=== PATIENT | female | born 1940 | race Caucasian/White ===

== ENCOUNTER 2020-03-10 12:12 | Emergency (ER) | payer MEDICARE, SELFPAY ==
[2020-03-10 12:20] VITALS: BP 121/95; PULSE 84; RESP 18; TEMP 36.6; O2SAT 86
--- NOTE | 2020-03-10 13:13 | ED.EYEPROB ---
HPI - Eye Problem General Chief complaint: Eye Problems <MITESH Garza Last Filed: 03/10/20 13:40> Stated complaint: left eye swollen <MITESH Garza Last Filed: 03/10/20 13:40> Time Seen by Provider: 03/10/20 12:22 <MITESH Garza Last Filed: 03/10/20 13:40> Source: patient <MITESH Garza Last Filed: 03/10/20 13:40> Mode of arrival: ambulatory <MITESH Garza Last Filed: 03/10/20 13:40> Limitations: no limitations <MITESH Garza Last Filed: 03/10/20 13:40> History of Present Illness HPI Narrative: Patient is an 80-year-old female who presents with left thigh swelling and facial swelling patient notes that she was working in the yard yesterday and believes she may have been stung in the face and has since had swelling she has been taking Benadryl and using cool compresses with minimal improvement. Patient denies any fever chills URI symptoms or visual changes. Patient on arrival to emergency department in the room in no distress <MITESH Garza Last Filed: 03/10/20 13:40> Related Data Home medications: Home Medications Medication Instructions Recorded Confirmed bumetanide 1 mg tablet 2 mg PO BID tablet 11/03/19 03/08/20 diltiazem HCl 120 mg tablet 120 mg PO TID 11/03/19 03/08/20 gabapentin 600 mg tablet 600 mg PO TID 11/03/19 03/08/20 mirtazapine 15 mg tablet 15 mg PO .QHS tablet 11/03/19 03/08/20 potassium chloride 10 mEq 10 meq PO BID 11/03/19 03/08/20 tablet,extended release pravastatin 20 mg tablet 20 mg PO DAILY 11/03/19 03/08/20 <MITESH Garza Last Filed: 03/10/20 13:40> Allergies/adverse reactions: Allergies Allergy/AdvReac Type Severity Reaction Status Date / Time codeine Allergy Nausea and Verified 03/10/20 12:40 Vomiting <MITESH Garza Last Filed: 03/10/20 13:40> Review of Systems Review of Systems: All systems reviewed & are unremarkable except as noted in HPI and below <Canelo Aparicio PA-C - Last Filed: 03/10/20 13:40> [facility] Past Medical History Medical History: Medical History Aortic stenosis CAD (coronary artery disease) CHF (congestive heart failure) Chronic hypoxemic respiratory failure Chronic insomnia COPD (chronic obstructive pulmonary disease) Depression History of breast cancer HLD (hyperlipidemia) Hypertensive heart disease with heart failure Idiopathic peripheral neuropathy [place] (myocardial infarction) Shortness of Breath Supplemental oxygen dependent <Canelo Aparicio PA-C - Last Filed: 03/10/20 13:40> Surgical History Surgical History: Surgical History History of bilateral mastectomy Status post right knee replacement Stented coronary artery <Canelo Aparicio PA-C - Last Filed: 03/10/20 13:40> Family History Family History: Family History (Updated 03/08/20 @ 11:10 by Blanca Parish MD) Sibling Family history of lung cancer, Onset Age: 75 Family history of malignant neoplasm of breast in first degree relative, Onset Age: 72 Father Cerebrovascular accident Hypertension Mother Heart disease Daughter , brain cancer 2013 age 53 No problems noted. <Canelo Aparicio PA-C - Last Filed: 03/10/20 13:40> Social History Social History: Social History Smoking packs per day: 0.5 Smoking cigarettes per day: 10.0 Years smoked: 30 Smoking pack-years: 15.00 Smoking status: Former smoker Tobacco type: cigarettes Second hand tobacco smoke exposure: No Smoking end date: 10/11/79 Alcohol intake: never Substance use: never Substance use type: does not use Gender identity (if verbalized by the patient): Female <Canelo Aparicio PA-C - Last Filed: 03/10/20 13:40> Exam Na
[2020-03-10] MEDS: methylPREDNISolone SOD SUCC 125 MG VIAL IV PUSH (13:17)
[2020-03-10] MEDS: FAMOTIDINE 20 MG/2 ML VIAL IV PUSH (13:17)
[2020-03-10 13:35] VITALS: BP 138/77; PULSE 66; RESP 18; O2SAT 100
== END 2020-03-10 13:52 | disposition home or self-care (01) ==
PROVIDERS: Emergency Provider Emergency Medicine; PCP Family Medicine
DX: T78.40XA Allergy, unspecified, initial encounter (principal); I25.10 Atherosclerotic heart disease of native coronary artery without angina pectoris; I50.9 Heart failure, unspecified; J96.11 Chronic respiratory failure with hypoxia; F51.04 Psychophysiologic insomnia; J44.9 Chronic obstructive pulmonary disease, unspecified; Z85.3 Personal history of malignant neoplasm of breast; E78.5 Hyperlipidemia, unspecified; I11.0 Hypertensive heart disease with heart failure; G60.9 Hereditary and idiopathic neuropathy, unspecified; Z99.81 Dependence on supplemental oxygen; I25.2 Old myocardial infarction; Z96.651 Presence of right artificial knee joint; Z90.13 Acquired absence of bilateral breasts and nipples; Z95.5 Presence of coronary angioplasty implant and graft; Z87.891 Personal history of nicotine dependence
CPT/HCPCS: 96374; 96375; 99284; J2930

== ENCOUNTER 2020-04-01 11:09 | Outpatient (CLI) | payer MEDICARE, SELFPAY ==
--- NOTE | ~2020-04-01 | XR_ITS ---
EXAMINATION: XR chest 2V DATE: 04/01/2020 12:07 INDICATION: Chronic obstructive pulmonary disease TECHNIQUE: PA and lateral views of the chest were obtained. COMPARISON: Chest radiograph dated 09/20/2019 FINDINGS: Postoperative change of prior left mastectomy and likely axillary lymph node dissection with multiple surgical clips at the left axilla. Right breast implant. Approximately 3 cm nodular opacity projecti ng over the lateral left midlung zone, unclear whether within the lung or scarring at the chest wall. Increased lucency in the right upper lung zone consistent with emphysema better appreciated on prior PET/CT dated 08/16/2012. Mild bibasilar atelectasis. No pulmonary edema, pleural effusion or pneumoth orax. Heart size is normal. Atherosclerotic aorta. IMPRESSION: 1. 3 cm nodular opacity projecting over the lateral left midlung zone. Differential would include int rapulmonary malignancy, pneumonia or atelectasis or artifact of chest wall scarring related to a prio r left mastectomy. Consider chest CT for further evaluation. 2. Emphysema. Reviewed, dictated and finalized at location A. IMPRESSION: 1. 3 cm nodular opacity projecting over the lateral left midlung zone. Differen tial would include intrapulmonary malignancy, pneumonia or atelectasis or artif act of chest wall scarring related to a prior left mastectomy. Consider chest C T for further evaluation. 2. Emphysema.
[2020-04-01 11:30] VITALS: PULSE 89; O2SAT 87
[2020-04-01 11:32] VITALS: O2SAT 87
[2020-04-01 11:34] VITALS: O2SAT 93
[2020-04-01 11:45] VITALS: PULSE 99; O2SAT 91
[2020-04-01 11:50] VITALS: PULSE 83; O2SAT 93
--- NOTE | 2020-04-01 12:06 | HOMEO2EVAL ---
Home Oxygen Evaluation RC: Home Oxygen (O2) Evaluation Start: 04/01/20 12:01 Freq: Status: Active Protocol: RPE Activity Type Activity Date Activity User E-Sign Co-Sign Detail Recorded Client Recorded Date Recorded By Document 04/01/20 11:30 ABHI [email or web address] 04/01/20 12:06 ABHI Document 04/01/20 11:32 ABHI [email or web address] 04/01/20 12:06 ABHI Document 04/01/20 11:34 ABHI [email or web address] 04/01/20 12:06 ABHI Document 04/01/20 11:45 ABHI [email or web address] 04/01/20 12:06 ABHI Document 04/01/20 11:50 ABHI [email or web address] 04/01/20 12:06 ABHI 04/01/20 04/01/20 04/01/20 11:30 11:32 11:34 Home O2 Evaluation Test Phase Resting Resting Resting Oxygen Delivery Room Air Nasal Cannula Nasal Cannula Oxygen Flow Rate (L/min) 1 2 Pulse Oximetry (90-100 %) 87 L 87 L 93 Pulse Rate (60-100 beats/min) 89 Ambulation Distance (feet) Home Oxygen Evaluation Comments Treatment Charges O2 Evaluation 04/01/20 04/01/20 11:45 11:50 Home O2 Evaluation Test Phase Exercise Resting Oxygen Delivery Nasal Cannula Nasal Cannula Oxygen Flow Rate (L/min) 2 2 Pulse Oximetry (90-100 %) 91 93 Pulse Rate (60-100 beats/min) 99 83 Ambulation Distance (feet) 400 Home Oxygen Evaluation Comments HOME O2 AT 2 AT REST AND 2 WITH ACTIVITY. Treatment Charges
--- NOTE | 2020-04-01 12:08 | RPD ---
INDIVIDUALIZED PLAN OF CARE FOR Kim Henderson Brief Synthesis of Pre-Admission Screen, Post-Admission Evaluation and Therapy Evaluations: The patient presents to rehab with . Comorbidities include . 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 Treatments may include: Therapeutic Exercise, Gait Training, Neuromuscular Re-education, Transfer Training, Community Reintegration, Bed Mobility, Patient/Family Education, Wheelchair Mobility Group Therapy/Concurrent Therapy Rationales: -Improve attention span during functional activities in a distracted environment. -Enhance problem solving and/or adequate judgment skills during functional activities in a distracted environment. -Promote increased safety awareness in a distracted environment to reduce fall risk with functional tasks, transfers, and ambulation to allow a more safe, self-sufficient return to the home environment. -Improve dynamic balance skills to promote safety and independence with functional activities in a distracted environment for maximum gain. Occupational Therapy: 5 days per week for 90 minutes. Treatments may include: Therapeutic Exercise, Therapeutic Activity, Cognitive Training, Self-Care Transfer Training, Community Reintegration, Home Management, Patient/Family Education, Wheelchair Mobility Training, Energy Conservation Training Group Therapy/Concurrent Therapy Rationales: -Allow therapist to observe and teach generalization and carry-over of skills learned in individual therapy. -Enhance problem solving and sequencing skills during therapeutic activities in a distracted environment. -Promote increased safety awareness in a realistic setting to reduce fall risk with functional tasks due to visual and verbal distractions. -Increase functional level with ADLs, ADL transfers and use of adaptive equipment through therapeutic activities with others while promoting safety to allow a more safe, self-sufficient return home. Speech Therapy: 5 days per week for 30 minutes. Treatments may include: Dysphasia Therapy, Speech/Language/Communication Therapy, Cognitive Training, Patient/Family Education Group Therapy/Concurrent Therapy - Rationale: -Allow therapist to observe and teach generalization and carry-over of skills learned in individual therapy. -Improve comprehension skills with complex or abstract ideas through discussion in a realistic setting. -Enhance problem solving skills with complex issues during activities in a distracted environment. -Promote increased memory skills and concentration in a distracted environment for a safe transition home. -Improve attention and focus with language/communication skills in a realistic and supportive therapeutic setting. -Allow for practice of expression of basic needs and ideas through functional activities with others. Medical Prognosis: Good Anticipated Length of Stay: 12 days Rehab Goals: Eating Goal: Oral Hygiene Goal: Toileting Hygiene Goal: Shower/Bathe Self Goal: Upper Body Dressing Goal: Lower Body Dressing Goal: Putting On/Taking Off Footwear Goal: Rolling Left and Right Goal: Sit to Lying Goal: Lying to Sitting on Side of Bed Goal: Sit to Stand Goal: Chair/Wfe-ck-Oacru Transfer Goal: Toilet Transfer Goal: Car Transfer Goal: Walk 10' Goal: Walk 50' with Two Turns Goal: Walk 150' Goal: Walk 10' on Uneven Surface Goal: 1 Step (Curb) Goal: 4 Steps Goal: 12 Steps Goal Score: Picking Up Object Goal: Wheel 50' with Two Turns Score: Wheel 150' Goal: Anticipated discharge destination: Home
--- NOTE | 2020-04-01 12:08 | PCRCNOTE ---
HOME O2 EVAL FAXED TO [facility]
== END 2020-04-01 11:10 | disposition home or self-care (01) ==
PROVIDERS: PCP Family Medicine; Visit Provider Internal Medicine Critical Care Medicine
DX: R06.02 Shortness of breath (principal); J43.9 Emphysema, unspecified
CPT/HCPCS: 71046; 94618

== ENCOUNTER 2020-05-06 10:23 | Outpatient (CLI) | payer MEDICARE, SELFPAY ==
--- NOTE | ~2020-05-06 | CT_ITS ---
EXAMINATION: CT chest wo con DATE: 05/06/2020 10:54 INDICATION: Solitary pulmonary nodule, history of breast cancer TECHNIQUE: Computed tomography (CT) of the chest was performed without intravenous contrast. The dose -length product (DLP) was 77.10 mGy-cm. Automated exposure control and iterative reconstruction techn ique were employed. COMPARISON: None FINDINGS: There is severe emphysema. There are changes of left lumpectomy and left axillary lymph nod e dissection. Also seen are changes of right mastectomy with implant reconstruction. No suspicious pu lmonary nodule is identified. The opacity on recent chest radiograph likely relates to residual soft tissue of the left chest wall. Calcified pulmonary nodules and calcified hilar and mediastinal lymph nodes are consistent with old granulomatous disease. There is no pleural effusion or pneumothorax. Th e heart size is normal. Calcified coronary artery atherosclerosis is noted. There is a stable valerie everardo deformity of the T10 vertebral body. IMPRESSION: 1. No suspicious CT correlate for the chest radiographic finding in question.. 2. Severe emphysema. Reviewed, dictated and finalized at location B.
== END 2020-05-06 10:24 | disposition home or self-care (01) ==
LOC: ANHIMG 10:26
PROVIDERS: PCP Family Medicine; Visit Provider Internal Medicine Critical Care Medicine
DX: R91.1 Solitary pulmonary nodule (principal); J43.9 Emphysema, unspecified
CPT/HCPCS: 71250

== ENCOUNTER 2020-09-27 10:49 | Observation (INO) | payer MEDICARE, SELFPAY ==
[2020-09-27] VITALS (11 sets, daily range): BP systolic 137–173; BP diastolic 71–88; PULSE 76–115; RESP 14–20; TEMP 35.6–36.7; O2SAT 87–98
--- NOTE | ~2020-09-27 | CT_ITS ---
EXAMINATION: CT brain wo con DATE: 09/27/2020 12:47 INDICATION: Head injury. TECHNIQUE: Computed tomography (CT) of the head was performed without intravenous contrast. The mA wa s adjusted according to patient size. Iterative reconstruction technique was employed. The dose-lengt h product was 529.67 mGy-cm. COMPARISON: None FINDINGS: There are old infarcts in the left basal ganglia. There is a small old infarct in right fro ntoparietal region. There are scattered areas of low attenuation in the cerebral white matter. There is no intracranial hemorrhage, acute infarction, or abnormal intracranial mass lesion. The ventricles are normal in size. There are likely changes of ocular lens replacement surgeries. There is mild muc osal thickening ethmoid sinuses. The mastoid air cells are normal. IMPRESSION: 1. 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 2. Moderate nonspecific cerebral white matter disease, which likely represents chronic small vessel i schemic disease. Reviewed, dictated and finalized at location A. OLATE MAKER IMPRESSION: 1. 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 2. Moderate nonspecific cerebral white matter disease, which likely represents chronic small vessel ischemic disease.
--- NOTE | ~2020-09-27 | XR_ITS ---
XR chest 1V portable 09/27/2020 11:38 Indication: Hypoxia. Recent fall with rib pain. Procedure: AP portable chest Comparison: 04/01/2020 Findings: Bilateral infiltrates of the mid and lower lung zones. Possible small effusions. Borderline heart size. There is atherosclerosis. No pneumothorax. The lungs are hyperinflated which is consiste nt with, but not diagnostic of chronic obstructive pulmonary disease. Impression: 1: Bilateral infiltrates of the mid and lower lung zones, suspicious for pneumonia. Reviewed, dictated and finalized at location A. R TENDER Impression: 1: Bilateral infiltrates of the mid and lower lung zones, suspicious for pneumo kalpesh.
--- NOTE | ~2020-09-27 | CT_ITS ---
EXAMINATION:CT chest wo con DATE: 09/27/2020 12:47 INDICATION: Rib pain. Hypoxia. Fall. TECHNIQUE: Computed tomography (CT) of the chest was performed without intravenous contrast. Automate d exposure control and iterative reconstruction technique were employed. The dose-length product (DLP ) was 256.53 mGy-cm. COMPARISON: Chest CT 05/06/2020 FINDINGS: There is severe emphysema. Calcified pulmonary nodules and calcified hilar and mediastinal lymph nodes are consistent with old granulomatous disease. There are small pleural effusions. There i s mild atelectasis bilaterally. The heart size is normal. There are coronary artery calcifications. N o pericardial effusion. Calcifications in the spleen are consistent with old granulomatous disease. T here is a right breast implant. There are surgical changes of left breast. There are gallstones in th e gallbladder, which is normal in size. There is mild atrophy of the kidneys. There are 2 stones in l eft kidney with the larger measuring 8 mm. There is severe thoracic spondylosis. There is dextroscoli osis of thoracic spine. There is a chronic compression fracture of T10. There is an old healed fractu re of left fourth rib. IMPRESSION: 1. Small pleural effusions. 2. Severe emphysema. Reviewed, dictated and finalized at location A. S MOLDER
--- NOTE | 2020-09-27 10:58 | ED.SOB ---
HPI - SOB/Dyspnea General Chief Complaint: Shortness of Breath/Dyspnea Stated Complaint: sob Time Seen by Provider: 09/27/20 10:56 Source: patient Mode of arrival: ambulatory Limitations: no limitations History of Present Illness HPI Narrative: Patient is an 80-year-old female with a history of HTN, CAD, [place] s/p stents, CHF, COPD requiring 2L O2, breast cancer recently diagnosed atrial fibrillation, currently on anticoagulation who presents for the evaluation of worsening shortness of breath. Patient states she has felt increased shortness of breath over the past 2 days, has had increased swelling in her lower extremities. She states she might have some very mild wheezing but states that she has not had a increased cough or sputum production. No hemoptysis. She is denying any chest pain. No pleuritic pain. Patient states she had to increase her home oxygen from 2 L to 4 L. She states she recently saw a stone breaker who diagnosed her with atrial fibrillation and started her on anticoagulation. Patient additionally with a ground-level fall last night when trying to ambulate to the bathroom where she tripped while in the hallway and fell onto her left side. She is reporting left-sided rib pain. She states she does not feel her shortness of breath worsened after the fall. She denies head trauma or loss of consciousness with the fall. Patient states she generally feels weak and unwell. No rhinorrhea, loss of sense of taste or smell or recent sick contacts. Related Data Home Medications Medication Instructions Recorded Confirmed diltiazem HCl 120 mg tablet 120 mg PO TID 11/03/19 06/07/20 digoxin 09/27/20 [id number] INHALATION 09/27/20 [Trelegy Ellipta] Allergies Allergy/AdvReac Type Severity Reaction Status Date / Time codeine AdvReac Nausea and Verified 09/27/20 13:24 Vomiting Review of Systems Review of Systems: Narrative: CONSTITUTIONAL: Denies fever, chills, or sweats. EYES: Denies visual changes, redness, or discharge. ENT: Denies rhinorrhea, congestion, sore throat, or otalgia. CARDIOVASCULAR: Denies chest pain, palpitations, reports lower extremity edema RESPIRATORY: Reports dry cough and shortness of breath GASTROINTESTINAL: Denies abdominal pain, nausea, vomiting, or diarrhea. GENITOURINARY: Denies dysuria or hematuria. SKIN: Denies rash or itching. MUSCULOSKELETAL: Denies back pain, joint pain, or myalgia. NEUROLOGIC: Denies headache, numbness, reports feeling diffusely weak PMFSH Past Medical History Medical History Aortic stenosis CAD (coronary artery disease) CHF (congestive heart failure) Chronic hypoxemic respiratory failure Chronic insomnia COPD (chronic obstructive pulmonary disease) Depression Emphysema lung History of breast cancer HLD (hyperlipidemia) Hypertensive heart disease with heart failure Idiopathic peripheral neuropathy [place] (myocardial infarction) Pulmonary hypertension Shortness of Breath Supplemental oxygen dependent Surgical History Surgical History History of bilateral mastectomy Status post right knee replacement Stented coronary artery Family History Family History Sibling Family history of lung cancer, Onset Age: 75 Family history of malignant neoplasm of breast in first degree relative, Onset Age: 72 Father Cerebrovascular accident Hypertension Mother Heart disease Daughter , brain cancer 2013 age 53 No problems noted. Social History Social History Smoking packs per day: 0.5 Smoking cigarettes per day: 10.0 Years smoked: 30 Smoking pack-years: 15.00 Smoking status: Former smoker Tobacco type: cigarettes Second hand tobacco smoke exposure: No Smoking end date: 10/11/79 [place]
--- NOTE | 2020-09-27 11:09 | ECG_ITS ---
Measurements Intervals [place] Rate: 104 P: MA: 0 QRS: 115 QRSD: 86 T: 65 QT: 321 QTc: 423 Interpretive Statements ATRIAL FIBRILLATION WITH RAPID VENTRICULAR RESPONSE RIGHT AXIS DEVIATION ANTEROSEPTAL INFARCT, AGE INDETERMINATE BORDERLINE ST-T WAVE ABNORMALITY- INFERIOR LEADS BASELINE ARTIFACT- I, II, III, AVR, AVL, AVF, V1 ABNORMAL ECG Electronically Signed On 09-27-2020 11:12:27 [employer] HANDL[employer] by Jus Kessler D.O.
[2020-09-27 11:26] LABS: Basophils Absolute Auto 0.1 K/mm3 (0.0-0.1); Basophils Percent Auto 0.6 % (0.2-1.2); Eosinophils Absolute Auto 0.3 K/mm3 (0-0.3); Hematocrit 41.8 % (37.0-47.0); Hemoglobin 13.5 g/dL (12.0-15.0); Immature Granulocyte Absolute 0.04 K/mm3 (0.00-0.031); Immature Granulocyte Percent A 0.5 % (0-0.5); Lymphocytes Absolute Auto 0.88 K/mm3 (0.9-3.2); Lymphocytes Percent Auto 10.6 % (18.3-44.2); Mean Corpuscular HGB Conc 32.3 g/dl (32-36); Mean Corpuscular Hemoglobin 31.8 pg (26-34); Mean Corpuscular Volume 98.4 fl (80-100); Mean Platelet Volume 9.2 fl (7.4-10.4); Monocytes Absolute Auto 0.8 K/mm3 (0.1-0.6); Monocytes Percent Auto 9.1 % (2.6-8.5); Neutrophils Absolute Auto 6.3 K/mm3 (1.3-6.7); Neutrophils Percent Auto 76.2 % (45.5-73.1); Platelet Count Result 265 k/mm3 (150-375); Red Blood Count 4.25 M/mm3 (4.2-5.4); Red Cell Distribution Width 13.6 % (11.5-14.5); White Blood Count 8.3 K/mm3 (4.5-10.0)
[2020-09-27 11:44] LABS: Anion Gap 8 mmol/L (8-16); Blood Urea Nitrogen 43 mg/dL (7-17); Calcium 10.2 mg/dL (8.4-10.2); Carbon Dioxide 33 mmol/L (22-30); Chloride 92 mmol/L (98-107); Estimated CRCL calculation 22 ml/min; Estimated Glomerular Filt Rate 29; Glucose 127 mg/dL (65-105); Potassium 4.4 mmol/L (3.4-5.0); Sodium 133 mmol/L (137-145)
--- NOTE | 2020-09-27 11:45 | PC.NURSE ---
pt states that she forgot to tell ed staff not to use lt arm for iv site or lab draws. pt had mastectomy with lymph node removal 2006. pt denies issues with lympadenopathy. pt was offered to have new iv site rt arm but does not want iv moved at this time.
[2020-09-27 11:58] LABS: INR 1.9
[2020-09-27 11:59] LABS: Partial Thromboplastin Time 43.4 SECONDS (22.3-36.8)
[2020-09-27 12:08] LABS: NT Pro B Type Natriuretic Pept 4370 PG/ML (5-100); Troponin I < 0.012 ng/mL (0.000-0.034)
[2020-09-27 12:11] LABS: Lactic Acid Reflex 1.1 mmol/L (0.7-2.1)
[2020-09-27] MEDS: ALBUTEROL SULFATE NEB 2.5 MG/0.5 ML INH 5 MG INHALATION ×2 (12:17→20:42)
[2020-09-27] MEDS: IPRATROPIUM BR 0.02% INH SOLN 0.5 MG/2.5 ML VIAL INHALATION ×2 (12:17→20:42)
[2020-09-27 12:28] LABS: Alveolar/Arterial O2 Gradient 68.8 mmHg; Base Excess ABG 4.5 mEq/l (+/-2.0); Fractional Inspired Oxygen 28 %; HCO3 ABG 29.7 mEq/l (22.0-26.0); Methemoglobin ABG 0.2 %THb (0-1.5); Oxygen Content ABG 17.6 %vol (16.0-22.0); Oxygen Saturation ABG 95.3 % (95.0-100.0); Oxyhemoglobin 93.9 % THb (90.0-100.0); PCO2 ABG 46.9 mmHg (35.0-45.0); PO2 ABG 75.5 mmHg (80.0-100.0); Reduced Hemoglobin 4.9 %THb (0-5.0); Total Hemoglobin 13.3 g/dL (12.0-18.0)
[2020-09-27 12:29] LABS: Device NASAL CANNULA; Site Drawn RIGHT BRACHIAL
[2020-09-27 13:47] LABS: Add Urine Microscopic? NO; Appearance Urine Clear (Clear); Bilirubin Urine Negative (Negative); Blood Urine Negative (Negative); Color Urine Straw (Yellow); Glucose Urine UA Negative (Negative); Ketones Urine Negative (Negative); Leukocyte Esterase Ur Negative LEU/UL (Negative); Nitrate Urine Negative (Negative); Protein Urine Negative (Negative); Specific Grav Ur 1.009 (1.001-1.035); Urobilinogen Urine Negative mg/dL (<2.0)
[2020-09-27] MEDS: FUROSEMIDE INJ 40 MG/4 ML VIAL 20 MG IV PUSH (15:13)
--- NOTE | 2020-09-27 15:51 | ADMGEN ---
This patient, Kim Henderson, was admitted to [facility] Surg Room 303-01. Patient/family oriented to hospital policies and general routines including ID bracelet, bed and alarms, visiting hours, pain management, procedures, bathroom and other care routines, personal items, smoking policy, room service/diet, and visiting hours. Information on how to activate the Rapid Response Team has been discussed. Patient/Family are encouraged to report perceived risks to care and to ask questions if they do not understand what they are told or what they should do.
[2020-09-28] VITALS (16 sets, daily range): BP systolic 115–153; BP diastolic 82–96; PULSE 60–138; RESP 16–20; TEMP 36.2–36.7; O2SAT 90–95
--- NOTE | 2020-09-28 00:29 | PM.IMHP ---
H&P: HPI History of Present Illness Date/Time: 09/27/20 5910 Chief Complaint: Shortness of breath Narrative: Kim Henderson is a 80 year old female who has a history of CHF and COPD. She is on chronic oxygen at home at 2 L per nasal cannula. The patient also has a history of atrial fibrillation and has been on Xarelto. Initially the patient's oxygen was increased up to 4 L but is now back down to [address] Ocampo is her baseball inspector. She states that she had a echo not too long ago. Patient fell last night when trying to ambulate to the bathroom and has a large bruise to her back. She tripped over her 's walker in the hallway. Since the patient is on Xarelto a CT and it does show severe emphysema calcified pulmonary nodules. Severe emphysema small pleural effusions. Infarcts on the left basal ganglia and right frontal parietal region. Moderate nonspecific cerebral white matter disease. 3 cm nodular opacities projecting over the left lateral mid lung zones. Emphysema Lasix in the emergency room and nebulizer treatment. The patient was feeling much better. The patient is being admitted for observation on the date of service which is 09/27/2020 Review of Systems Review of Systems: All systems reviewed & are unremarkable except as noted in HPI and below Constitutional: Constitutional: Reports as per HPI and Reports no additional constitutional complaints Eyes: Eyes: Reports as per HPI and Reports no additional eye complaints ENT: Reports system reviewed and no additional complaints, except as documented and Reports Normal hearing present Cardiovascular: Cardiovascular: Reports no additional cardiovascular complaints Respiratory: Respiratory: Reports no additional respiratory complaints and Reports no additional respiratory complaints Gastrointestinal: Gastrointestinal: Reports as per HPI and Reports no additional gastrointestinal complaints Musculoskeletal: Musculoskeletal: Reports no additional musculoskeletal complaints Integumentary/Breasts: Skin/Breast: Reports system reviewed and no additional complaints, except as docu and Reports as per HPI Neurologic: Reports system reviewed and no additional complaints, except as documented, Reports as per HPI and Reports Normal hearing present Psychiatric: Psychiatric: Reports no additional psychiatric complaints and Reports as per HPI Endocrine: Endocrine: Reports no additional endocrine complaints Hematologic/Lymphatic: Hematologic/Lymphatic: Reports no additional hematologic/lymphatic complaints Allergic/Immunologic: Allergic/Immunologic: Reports no additional allergic/immunologic complaints [facility] Past Medical History Medical History (Updated 09/28/20 @ 00:43 by Cristina Hopper NP) Aortic stenosis Atrial fibrillation CAD (coronary artery disease) CHF (congestive heart failure) Chronic hypoxemic respiratory failure Chronic insomnia COPD (chronic obstructive pulmonary disease) Depression Emphysema lung History of breast cancer With bilateral mastectomy and radiation HLD (hyperlipidemia) Hypertensive heart disease with heart failure Idiopathic peripheral neuropathy [place] (myocardial infarction) Pulmonary hypertension Shortness of Breath Supplemental oxygen dependent Surgical History Surgical History (Updated 09/28/20 @ 00:35 by Cristina Hopper NP) History of bilateral mastectomy History of partial hysterectomy Status post right knee replacement Stented coronary artery Total of 4 to cardiac catheterization with 2 stents each time Family History Family History Sibling Family history of lung cancer, Onset Age: 75 Family history of malignant neoplasm of breast in first degree relative, Onset Age: 72 Father Cerebrovascular accident Hypertension Mother Heart disease Daughter , brain cancer 2013 age 53 No problems noted. Social History Social History (Updated 09/28/20
[2020-09-28] MEDS: ALBUTEROL SULFATE NEB 2.5 MG/0.5 ML INH 5 MG INHALATION ×3 (01:40→20:39)
[2020-09-28] MEDS: IPRATROPIUM BR 0.02% INH SOLN 0.5 MG/2.5 ML VIAL INHALATION ×3 (01:40→20:39)
[2020-09-28] MEDS: POTASSIUM CHLORIDE 10 MEQ TABLET.ER PO ×2 (03:09→17:31)
[2020-09-28] MEDS: MIRTAZAPINE 15 MG TABLET PO ×2 (03:09→20:46)
[2020-09-28] MEDS: dilTIAZem HCL 60 MG TABLET 120 MG PO ×3 (03:09→17:31)
[2020-09-28] MEDS: RIVAROXABAN 15 MG TABLET PO ×2 (03:09→17:32)
[2020-09-28] MEDS: DICLOFENAC SOD 75 MG TABLET.EC PO ×2 (03:09→17:31)
[2020-09-28] MEDS: GABAPENTIN 300 MG CAPSULE 600 MG PO ×3 (03:09→17:31)
[2020-09-28] MEDS: methylPREDNISolone SOD SUCC 125 MG VIAL 60 MG IV PUSH ×2 (05:17→15:55)
[2020-09-28] MEDS: BUMETANIDE INJ 1 MG/4 ML VIAL IV PUSH ×2 (08:22→17:30)
[2020-09-28] MEDS: HYDROCORTISONE 1% 30 GM CREAM 1 APPLIC TOPICAL ×2 (08:22→20:51)
[2020-09-28] MEDS: LOSARTAN POTASSIUM 100 MG TABLET PO (08:24)
[2020-09-28] MEDS: PRAVASTATIN SODIUM 20 MG TABLET PO (08:24)
[2020-09-28] MEDS: DIGOXIN TAB 125 MCG TABLET PO (08:43)
--- NOTE | 2020-09-28 09:05 | PCPTNOTE ---
Jaquelin attempted....patient is eating breakfast, will see later this morning
[2020-09-28] MEDS: METOPROLOL TARTRATE INJ 5 MG/5 ML VIAL IV PUSH (14:13)
--- NOTE | 2020-09-28 15:31 | PM.IMPN ---
Progress Note: A&P Assessment and Plan (1) Dyspnea: Qualifiers: Dyspnea type: unspecified Qualified Code(s): R06.00 - Dyspnea, unspecified Code(s): R06.00 - Dyspnea, unspecified Status: Acute Assessment and Plan: Patient describes chronic shortness of breath worsening in the last 1 week. This is likely multifactorial. Possible contributing factors include chronic respiratory failure with severe emphysema, acute on chronic CHF, aortic stenosis, rapid A fib. (2) Atrial fibrillation: Qualifiers: Atrial fibrillation type: unspecified Qualified Code(s): I48.91 - Unspecified atrial fibrillation Code(s): I48.91 - Unspecified atrial fibrillation Status: Chronic Assessment and Plan: Patient was seen by her undercutter at [facility] last week. Told she was in A fib, was started on digoxin and xarelto and put on a Holter monitor which she is still wearing at this time. Continue her home diltiazem, digoxin, and xarelto. A dose was missed overnight while she was being admitted and she has HRs 130s this morning. Administer 5mg IV lopressor x 1 and rates improved to 80sbpm. Continue to monitor with cardiac telemetry. (3) CHF (congestive heart failure): Qualifiers: Heart failure type: diastolic Heart failure chronicity: acute on chronic Qualified Code(s): I50.33 - Acute on chronic diastolic (congestive) heart failure Code(s): I50.9 - Heart failure, unspecified Status: Acute Assessment and Plan: Acute on chronic diastolic CHF. Last echo in the EMR is 12/26/19 shows moderate aortic stenosis, mild to moderate tricuspid regurgitation, severe pulmonary hypertension, EF 65%. Presents with worsening shortness of breath, lower extremity edema and elevated BNP. Repeat echocardiogram. Continue her home Bumex. Monitor daily weights, I&Os. She will follow-up with her established undercutter, Dr. Ocampo. (4) Chronic hypoxemic respiratory failure: Code(s): J96.11 - Chronic respiratory failure with hypoxia Status: Acute Assessment and Plan: Patient is tolerating her home oxygen requirement at 2 liters/minute nasal cannula today. No respiratory distress. (5) Suspected COVID-19 virus infection: Code(s): Z20.828 - Contact with and (suspected) exposure to other viral communicable diseases Status: Acute Assessment and Plan: COVID-19 seems less likely. COVID test pending; droplet isolation until test results are available. (6) Aortic stenosis: Qualifiers: Cardiac valve disease etiology: etiology unspecified Qualified Code(s): I35.0 - Nonrheumatic aortic (valve) stenosis Code(s): I35.0 - Nonrheumatic aortic (valve) stenosis Status: Chronic Assessment and Plan: Noted on most recent available echocardiogram from December 2019, see above. Worsening shortness of breath could be related to aortic stenosis among her other comorbidities. (7) COPD (chronic obstructive pulmonary disease): Qualifiers: COPD type: emphysema Emphysema type: unspecified Qualified Code(s): J43.9 - Emphysema, unspecified Code(s): J44.9 - Chronic obstructive pulmonary disease, unspecified Status: Acute Assessment and Plan: With severe emphysema on imaging, suspect this is contributing to her symptoms. Continue nebulized bronchodilator therapy and supplemental O2. Transition IV steroids to oral prednisone tomorrow. (8) CAD (coronary artery disease): Qualifiers: Coronary Disease-Associated Artery/Lesion type: unspecified vessel or lesion type [place] vs. transplanted heart: u
[2020-09-28 18:58] LABS: SARS-CoV-2 RNA PCR Negative
[2020-09-28] MEDS: ZOLPIDEM TARTRATE (*CRX) 5 MG TABLET PO (20:46)
[2020-09-29] VITALS (18 sets, daily range): BP systolic 121–140; BP diastolic 59–87; PULSE 82–126; RESP 16–20; TEMP 36.4–37.3; O2SAT 93–97
[2020-09-29 06:31] LABS: Basophils Percent Auto 0.1 % (0.2-1.2); Hematocrit 37.2 % (37.0-47.0); Hemoglobin 11.9 g/dL (12.0-15.0); Immature Granulocyte Absolute 0.04 K/mm3 (0.00-0.031); Immature Granulocyte Percent A 0.5 % (0-0.5); Lymphocytes Absolute Auto 0.52 K/mm3 (0.9-3.2); Mean Corpuscular Hemoglobin 31.6 pg (26-34); Mean Corpuscular Volume 98.7 fl (80-100); Mean Platelet Volume 9.2 fl (7.4-10.4); Monocytes Absolute Auto 0.3 K/mm3 (0.1-0.6); Monocytes Percent Auto 3.3 % (2.6-8.5); Neutrophils Absolute Auto 7.9 K/mm3 (1.3-6.7); Neutrophils Percent Auto 90.1 % (45.5-73.1); Platelet Count Result 257 k/mm3 (150-375); Red Blood Count 3.77 M/mm3 (4.2-5.4); Red Cell Distribution Width 13.5 % (11.5-14.5); White Blood Count 8.7 K/mm3 (4.5-10.0)
[2020-09-29 06:54] LABS: Alanine Aminotransferase 29 U/L (4-35); Albumin Level 3.4 g/dL (3.5-5.1); Alkaline Phosphatase 60 U/L (38-126); Anion Gap 6 mmol/L (8-16); Aspartate Amino Transferase 24 U/L (14-36); Bilirubin,Total 0.5 mg/dL (0.2-1.3); Blood Urea Nitrogen 42 mg/dL (7-17); Calcium 9.5 mg/dL (8.4-10.2); Carbon Dioxide 34 mmol/L (22-30); Chloride 96 mmol/L (98-107); Estimated CRCL calculation 24 ml/min; Estimated Glomerular Filt Rate 33; Glucose 165 mg/dL (65-105); Lactate Dehydrogenase 438 U/L (313-618); Magnesium 2.1 mg/dL (1.6-2.3); Potassium 4.8 mmol/L (3.4-5.0); Sodium 136 mmol/L (137-145)
[2020-09-29 07:43] LABS: Thyroid Stimulating Hormone Reflex 0.369 uIU/mL (0.465-4.68)
[2020-09-29] MEDS: FLUTICASONE/UMECLIDIN/VILANTER 100-62.5-25 MCG ELLIPTA 1 PUFF INHALATION (07:51)
[2020-09-29] MEDS: IPRATROPIUM BR 0.02% INH SOLN 0.5 MG/2.5 ML VIAL INHALATION ×2 (07:52→20:05)
[2020-09-29] MEDS: ALBUTEROL SULFATE NEB 2.5 MG/0.5 ML INH 5 MG INHALATION ×2 (07:52→20:05)
[2020-09-29] MEDS: DIGOXIN TAB 125 MCG TABLET PO (08:13)
[2020-09-29] MEDS: predniSONE 20 MG TABLET 40 MG PO (08:13)
[2020-09-29] MEDS: dilTIAZem HCL 60 MG TABLET 120 MG PO ×3 (08:13→16:40)
[2020-09-29] MEDS: GABAPENTIN 300 MG CAPSULE 600 MG PO ×3 (08:13→16:40)
[2020-09-29] MEDS: PRAVASTATIN SODIUM 20 MG TABLET PO (08:17)
[2020-09-29] MEDS: POTASSIUM CHLORIDE 10 MEQ TABLET.ER PO ×2 (08:17→16:41)
[2020-09-29] MEDS: DICLOFENAC SOD 75 MG TABLET.EC PO ×2 (08:17→16:40)
[2020-09-29] MEDS: BUMETANIDE INJ 1 MG/4 ML VIAL IV PUSH ×2 (08:17→16:40)
[2020-09-29] MEDS: HYDROCORTISONE 1% 30 GM CREAM 1 APPLIC TOPICAL ×2 (08:17→20:27)
[2020-09-29] MEDS: LOSARTAN POTASSIUM 100 MG TABLET PO (08:17)
[2020-09-29 08:52] LABS: Free T4 Free Thyroxine Reflex 1.21 ng/dL (0.78-2.19)
[2020-09-29] MEDS: METOPROLOL TARTRATE 6.25 MG TABLET PO ×2 (12:01→20:27)
[2020-09-29] MEDS: ACETAMINOPHEN 325 MG TABLET 650 MG PO (12:59)
--- NOTE | 2020-09-29 14:31 | PM.IMPN ---
Progress Note: A&P Assessment and Plan (1) Dyspnea: Qualifiers: Dyspnea type: unspecified Qualified Code(s): R06.00 - Dyspnea, unspecified Code(s): R06.00 - Dyspnea, unspecified Status: Acute Assessment and Plan: Patient describes chronic shortness of breath worsening in the last 1 week. This is likely multifactorial. Possible contributing factors include chronic respiratory failure with severe emphysema, acute on chronic CHF, aortic stenosis, new A fib with intermittent rapid rates. COVID negative. (2) Atrial fibrillation: Qualifiers: Atrial fibrillation type: unspecified Qualified Code(s): I48.91 - Unspecified atrial fibrillation Code(s): I48.91 - Unspecified atrial fibrillation Status: Chronic Assessment and Plan: Patient was seen by her plate stacker at [facility] last week. Told she was in A fib, was started on digoxin and xarelto and put on a Holter monitor which she is still wearing at this time. Continue her home diltiazem, digoxin, and xarelto. Rates still a bit elevated at rest today, add metoprolol tartrate. Continue to monitor with cardiac telemetry. She will follow up with Dr Ocampo's office within 1 week. (3) CHF (congestive heart failure): Qualifiers: Heart failure type: diastolic Heart failure chronicity: acute on chronic Qualified Code(s): I50.33 - Acute on chronic diastolic (congestive) heart failure Code(s): I50.9 - Heart failure, unspecified Status: Acute Assessment and Plan: Acute on chronic diastolic CHF. Last echo in the EMR is 12/26/19 shows moderate aortic stenosis, mild to moderate tricuspid regurgitation, severe pulmonary hypertension, EF 65%. Presents with worsening shortness of breath, lower extremity edema and elevated BNP. Continue her home Bumex. Monitor daily weights, I&Os. (4) Chronic hypoxemic respiratory failure: Code(s): J96.11 - Chronic respiratory failure with hypoxia Status: Acute Assessment and Plan: Home O2 requirement is 2 liters/minute nasal cannula; today she is on 3 L. No respiratory distress. (5) Aortic stenosis: Qualifiers: Cardiac valve disease etiology: etiology unspecified Qualified Code(s): I35.0 - Nonrheumatic aortic (valve) stenosis Code(s): I35.0 - Nonrheumatic aortic (valve) stenosis Status: Chronic Assessment and Plan: Noted on most recent available echocardiogram from December 2019, see above. Worsening shortness of breath could be related to aortic stenosis among her other comorbidities. (6) COPD (chronic obstructive pulmonary disease): Qualifiers: COPD type: emphysema Emphysema type: unspecified Qualified Code(s): J43.9 - Emphysema, unspecified Code(s): J44.9 - Chronic obstructive pulmonary disease, unspecified Status: Acute Assessment and Plan: With severe emphysema on imaging, suspect this is contributing to her symptoms. Continue nebulized bronchodilator therapy and supplemental O2. Transitioned to oral prednisone. (7) CAD (coronary artery disease): Qualifiers: Coronary Disease-Associated Artery/Lesion type: unspecified vessel or lesion type [place] vs. transplanted heart: unspecified whether [place] or transplanted heart Associated angina: without angina Qualified Code(s): I25.10 - Atherosclerotic heart disease of [place] coronary artery without angina pectoris Code(s): I25.10 - Atherosclerotic heart disease of [place] coronary artery without angina pectoris Status: Acute Assessment and Plan: With history of coronary stenting x4. Follows with plate stacker, Dr. Ocampo. Stable, no chest pain.
[2020-09-29] MEDS: FLUTICASONE PROPIONATE 0.05% NA SPR 16 GM BTL (*BKC) 1 SPRAY NASAL ×2 (16:37→20:26)
[2020-09-29] MEDS: RIVAROXABAN 15 MG TABLET PO (16:41)
[2020-09-29] MEDS: ZOLPIDEM TARTRATE (*CRX) 5 MG TABLET PO (20:26)
[2020-09-29] MEDS: MIRTAZAPINE 15 MG TABLET PO (20:27)
--- NOTE | 2020-09-29 21:37 | PC.NURSE ---
This patient, Kim Henderson, was transferred to [facility] on 09/29/20 at 2137. Personal belongings sent with patient. Report given to Marlena PEREZ. Appropriate documentation sent with patient. Family notified.
--- NOTE | 2020-09-29 21:40 | PC.NURSE ---
2140- This patient, Kim Henderson, was received from [facility] and transferred to [facility] on 09/29/20 at 2140. Patient oriented to unit policies and routines.
[2020-09-30] VITALS (8 sets, daily range): BP systolic 134–148; BP diastolic 83–86; PULSE 95–116; RESP 18–20; TEMP 36.8–36.9; O2SAT 97–98
[2020-09-30 05:33] LABS: Basophils Percent Auto 0.1 % (0.2-1.2); Eosinophils Percent Auto 0.1 % (0-4.4); Hemoglobin 12.2 g/dL (12.0-15.0); Immature Granulocyte Absolute 0.06 K/mm3 (0.00-0.031); Immature Granulocyte Percent A 0.4 % (0-0.5); Lymphocytes Absolute Auto 0.83 K/mm3 (0.9-3.2); Mean Corpuscular HGB Conc 32.1 g/dl (32-36); Mean Corpuscular Hemoglobin 31.9 pg (26-34); Mean Corpuscular Volume 99.5 fl (80-100); Monocytes Absolute Auto 0.9 K/mm3 (0.1-0.6); Monocytes Percent Auto 6.1 % (2.6-8.5); Neutrophils Absolute Auto 12.1 K/mm3 (1.3-6.7); Neutrophils Percent Auto 87.3 % (45.5-73.1); Platelet Count Result 263 k/mm3 (150-375); Red Blood Count 3.82 M/mm3 (4.2-5.4); White Blood Count 13.9 K/mm3 (4.5-10.0)
[2020-09-30 06:04] LABS: Anion Gap 4 mmol/L (8-16); Blood Urea Nitrogen 59 mg/dL (7-17); Calcium 9.3 mg/dL (8.4-10.2); Carbon Dioxide 34 mmol/L (22-30); Chloride 96 mmol/L (98-107); Estimated CRCL calculation 22 ml/min; Estimated Glomerular Filt Rate 29; Glucose 143 mg/dL (65-105); Potassium 4.9 mmol/L (3.4-5.0); Sodium 134 mmol/L (137-145)
[2020-09-30] MEDS: BUMETANIDE INJ 1 MG/4 ML VIAL IV PUSH (09:09)
[2020-09-30] MEDS: FLUTICASONE PROPIONATE 0.05% NA SPR 16 GM BTL (*BKC) 1 SPRAY NASAL (09:09)
[2020-09-30] MEDS: predniSONE 20 MG TABLET 40 MG PO (09:10)
[2020-09-30] MEDS: LOSARTAN POTASSIUM 100 MG TABLET PO (09:10)
[2020-09-30] MEDS: POTASSIUM CHLORIDE 10 MEQ TABLET.ER PO (09:10)
[2020-09-30] MEDS: GABAPENTIN 300 MG CAPSULE 600 MG PO ×2 (09:10→12:51)
[2020-09-30] MEDS: dilTIAZem HCL 60 MG TABLET 120 MG PO ×2 (09:11→12:51)
[2020-09-30] MEDS: DICLOFENAC SOD 75 MG TABLET.EC PO (09:11)
[2020-09-30] MEDS: DIGOXIN TAB 125 MCG TABLET PO (09:11)
[2020-09-30] MEDS: METOPROLOL TARTRATE 6.25 MG TABLET PO (09:11)
[2020-09-30] MEDS: PRAVASTATIN SODIUM 20 MG TABLET PO (09:12)
--- NOTE | 2020-09-30 10:11 | PCRCNOTE ---
Window of time for administration has passed. See next scheduled administration./ 09/30/20 0200 neb not given
[2020-09-30] MEDS: ALBUTEROL SULFATE NEB 2.5 MG/0.5 ML INH 5 MG INHALATION (10:36)
[2020-09-30] MEDS: IPRATROPIUM BR 0.02% INH SOLN 0.5 MG/2.5 ML VIAL INHALATION (10:36)
--- NOTE | 2020-09-30 11:47 | PM.DS ---
DS: Admitting Diagnosis Admitting Diagnosis Admitting Diagnosis: Acute on chronic CHF exacerbation DS: Discharge Diagnosis Discharge Diagnosis (1) Dyspnea: Qualifiers: Dyspnea type: unspecified Qualified Code(s): R06.00 - Dyspnea, unspecified Code(s): R06.00 - Dyspnea, unspecified Status: Acute Assessment and Plan: Date of Admission 09/27/20 Date of Discharge/DOS 09/30/20 Ms. Henderson is a pleasant 80yo F with history of CHF, severe emphysema with chronic hypoxic respiratory failure normally on 2L/min home O2, aortic stenosis, coronary artery disease, and recently diagnosed atrial fibrillation who presented to the ED for evaluation of shortness of breath. Earlier in the week she had visited her divisional merchandising manager's office, Dr Ocampo, where she was found to be in atrial fibrillation. This was a new diagnosis for her. At that time, she was started on digoxin and xarelto and a holter monitor was placed. She remained on her home diltiazem which she has been on for years. She was treated here for acute on chronic CHF which was likely exacerbated by new-onset a fib. HRs were elevated into 130s-140s, thus beta blockade with metoprolol tartrate was added to her regimen until she could follow up with her established divisional merchandising manager. HRs improved prior to discharge and patient was feeling better. She was hemodynamically stable for discharge on 09/30/20 with instructions to follow up with her PCP and Dr Ocampo. Patient describes chronic shortness of breath worsening in the last 1 week. This is likely multifactorial. Possible contributing factors include chronic respiratory failure with severe emphysema, acute on chronic CHF, aortic stenosis, new A fib with intermittent rapid rates. COVID negative. (2) Atrial fibrillation: Qualifiers: Atrial fibrillation type: unspecified Qualified Code(s): I48.91 - Unspecified atrial fibrillation Code(s): I48.91 - Unspecified atrial fibrillation Status: Chronic Assessment and Plan: Patient was seen by her divisional merchandising manager at [facility] last week. Told she was in A fib, was started on digoxin and xarelto and put on a Holter monitor which she is still wearing at this time. Continue her home diltiazem, digoxin, and xarelto. Rates still a bit elevated at rest today, added metoprolol tartrate. She will follow up with Dr Ocampo's office within 1 week. (3) CHF (congestive heart failure): Qualifiers: Heart failure type: diastolic Heart failure chronicity: acute on chronic Qualified Code(s): I50.33 - Acute on chronic diastolic (congestive) heart failure Code(s): I50.9 - Heart failure, unspecified Status: Acute Assessment and Plan: Acute on chronic diastolic CHF. Last echo in the EMR is 12/26/19 shows moderate aortic stenosis, mild to moderate tricuspid regurgitation, severe pulmonary hypertension, EF 65%. Presents with worsening shortness of breath, lower extremity edema and elevated BNP. Continue her home Bumex. (4) Chronic hypoxemic respiratory failure: Code(s): J96.11 - Chronic respiratory failure with hypoxia Status: Acute Assessment and Plan: Home O2 requirement is 2 liters/minute nasal cannula. No respiratory distress. (5) Aortic stenosis: Qualifiers: Cardiac valve disease etiology: etiology unspecified Qualified Code(s): I35.0 - Nonrheumatic aortic (valve) stenosis Code(s): I35.0 - Nonrheumatic aortic (valve) stenosis Status: Chronic Assessment and Plan: Noted on most recent available echocardiogram from December 2019, see above. Worsening shortness of breath could be related to aortic stenosis among her other comorbidities.
--- NOTE | 2020-10-15 09:55 | PC.NURSE ---
Blood cx are negative.
== END 2020-09-30 13:18 | disposition home or self-care (01) ==
LOC: ANHED 11:03 → ANH3MEDSUR 14:58 → ANHCPC 09-29 22:38 → ANH3MEDSUR 10-01 11:37 → ANHCPC 10-01 11:37
PROVIDERS: Nurse Practitioner; Physician Assistant; Admitting Provider Family Medicine; Emergency Provider Emergency Medicine; PCP Family Medicine; Visit Provider Family Medicine
DX: I11.0 Hypertensive heart disease with heart failure (principal); I50.33 Acute on chronic diastolic (congestive) heart failure; J96.11 Chronic respiratory failure with hypoxia; I48.91 Unspecified atrial fibrillation; M79.89 Other specified soft tissue disorders; R07.81 Pleurodynia; W01.0XXA Fall on same level from slipping, tripping and stumbling without subsequent striking against object, initial encounter; R53.1 Weakness; I25.2 Old myocardial infarction; I35.0 Nonrheumatic aortic (valve) stenosis; I25.10 Atherosclerotic heart disease of native coronary artery without angina pectoris; J44.9 Chronic obstructive pulmonary disease, unspecified; G60.9 Hereditary and idiopathic neuropathy, unspecified; E78.5 Hyperlipidemia, unspecified; F32.9 Major depressive disorder, single episode, unspecified; Z85.3 Personal history of malignant neoplasm of breast; Z95.5 Presence of coronary angioplasty implant and graft; Z99.81 Dependence on supplemental oxygen; Z87.891 Personal history of nicotine dependence; Z20.828 Contact with and (suspected) exposure to other viral communicable diseases; Z79.01 Long term (current) use of anticoagulants
CPT/HCPCS: 36415; 36600; 70450; 71045; 71250; 80048; 80053; 81003; 82375; 82728; 82805; 83050; 83605; 83615; 83735; 83880; 84439; 84443; 84480; 84484; 85025; 85610; 85730; 87040; 87635; 93005; 94640; 96374; 96375; 96376; 97110; 97116; 97161; 97166; 97530; 99285; A9270; C9803; G0378; J1940; J2930; J7512; U0003

== ENCOUNTER 2020-11-13 14:11 | Emergency (ER) | payer MEDICARE, SELFPAY ==
[2020-11-13] VITALS (16 sets, daily range): BP systolic 147–178; BP diastolic 75–102; PULSE 70–92; RESP 14–22; TEMP 36.3; O2SAT 84–95
--- NOTE | ~2020-11-13 | XR_ITS ---
EXAMINATION: XR chest 2V EXAM DATE: 11/13/2020 14:57 INDICATION: Low oxygen saturation. History of CHF, COPD, coronary artery disease. TECHNIQUE: Frontal and lateral projections of the chest obtained and reviewed. Comparison is made to prior examination from 09/27/2020. FINDINGS: Small to moderate bilateral pleural effusions. Cardiomegaly and pulmonary vascular congest ion. There is indistinct reticulation with a bibasal predominance which may indicate pulmonary edema. These findings are more pronounced than on prior study. Can't exclude basilar pneumonia. No pneumoth orax. There are bony degenerative changes. There is aortic arteriosclerosis. IMPRESSION: 1. Findings consistent with CHF exacerbation. 2. Pneumonia not excludable. Reviewed, dictated and finalized at location B. ECT DEVELOPMENT DIRECTOR
--- NOTE | 2020-11-13 14:27 | ECG_ITS ---
Measurements Intervals [place] Rate: 73 P: [place]: 0 QRS: 145 QRSD: 91 T: 12 QT: 375 QTc: 414 Interpretive Statements ATRIAL FIBRILLATION INCOMPLETE RIGHT BUNDLE BRANCH BLOCK ANTEROSEPTAL INFARCT, AGE INDETERMINATE ST-T WAVE ABNORMALITY IN LATERAL LEADS- CONSIDER ISCHEMIA BASELINE ARTIFACT- I, III, AVL, AVF, V3-V5 ABNORMAL ECG Electronically Signed On 11-13-2020 15:14:56 SKELP PROCESSOR by Jus Kessler D.O.
[2020-11-13 14:47] LABS: Basophils Absolute Auto 0.1 K/mm3 (0.0-0.1); Basophils Percent Auto 0.9 % (0.2-1.2); Eosinophils Absolute Auto 0.1 K/mm3 (0-0.3); Eosinophils Percent Auto 0.9 % (0-4.4); Hematocrit 41.1 % (37.0-47.0); Hemoglobin 13.4 g/dL (12.0-15.0); Immature Granulocyte Absolute 0.04 K/mm3 (0.00-0.031); Immature Granulocyte Percent A 0.5 % (0-0.5); Lymphocytes Absolute Auto 0.91 K/mm3 (0.9-3.2); Lymphocytes Percent Auto 11.3 % (18.3-44.2); Mean Corpuscular HGB Conc 32.6 g/dl (32-36); Mean Corpuscular Hemoglobin 30.8 pg (26-34); Mean Corpuscular Volume 94.5 fl (80-100); Mean Platelet Volume 9.5 fl (7.4-10.4); Monocytes Absolute Auto 0.6 K/mm3 (0.1-0.6); Monocytes Percent Auto 7.3 % (2.6-8.5); Neutrophils Absolute Auto 6.4 K/mm3 (1.3-6.7); Neutrophils Percent Auto 79.1 % (45.5-73.1); Platelet Count Result 202 k/mm3 (150-375); Red Blood Count 4.35 M/mm3 (4.2-5.4); Red Cell Distribution Width 13.3 % (11.5-14.5); White Blood Count 8.1 K/mm3 (4.5-10.0)
[2020-11-13 15:01] LABS: Blood Urea Nitrogen 33 mg/dL (7-17); Calcium 9.6 mg/dL (8.4-10.2); Carbon Dioxide > 40 mmol/L (22-30); Chloride 85 mmol/L (98-107); Estimated CRCL calculation 24 ml/min; Estimated Glomerular Filt Rate 31; Glucose 114 mg/dL (65-105); Potassium 3.9 mmol/L (3.4-5.0); Sodium 129 mmol/L (137-145)
[2020-11-13 15:05] LABS: INR 1.4
[2020-11-13 15:17] LABS: NT Pro B Type Natriuretic Pept 13100 PG/ML (5-100); Troponin I 0.059 ng/mL (0.000-0.034)
--- NOTE | 2020-11-13 15:49 | ED.SOB ---
HPI - SOB/Dyspnea General Chief Complaint: Shortness of Breath/Dyspnea Stated Complaint: shortness of breath, COPD Time Seen by Provider: 11/13/20 14:38 Source: patient and family Mode of arrival: ambulatory Limitations: no limitations History of Present Illness HPI Narrative: An 80-year-old female presents to the emergency department today with complaints of shortness of breath and altered mental status. Reportedly she went to her PCPs office, was found to have a pulse ox of 83% and was noted to be somewhat lethargic. Patient does admit to a history of CHF and COPD. She does state that by the time she gets out of the emergency department she is feeling better, more awake and alert. Patient has been using her oxygen a little bit more frequently. Her friend that presents with her notes that she was diagnosed with Covid in June and does not feel that she is ever completely recovered. She notes that patient gets winded much more easily. Currently the patient is denying any complaints at this time but notes that if she gets up and moves she does get winded very quickly. Related Data Home Medications Medication Instructions Recorded Confirmed diltiazem HCl 120 mg tablet 120 mg PO TID 11/03/19 11/13/20 Xarelto 15 mg PO DAILY 09/27/20 11/13/20 digoxin 0.125 mcg PO DAILY 09/27/20 11/13/20 fluticasone propionate 50 1 spray INTRANASAL DAILY 11/13/20 11/13/20 mcg/actuation nasal spray,suspension Allergies Allergy/AdvReac Type Severity Reaction Status Date / Time codeine AdvReac Nausea and Verified 11/13/20 14:24 Vomiting Review of Systems Review of Systems: Narrative: CONSTITUTIONAL: Denies fever, chills, or sweats. EYES: Denies visual changes, redness, or discharge. ENT: Denies rhinorrhea, congestion, sore throat, or otalgia. CARDIOVASCULAR: Denies chest pain, palpitations, or edema. RESPIRATORY: Denies cough or dyspnea. GASTROINTESTINAL: Denies abdominal pain, nausea, vomiting, or diarrhea. GENITOURINARY: Denies dysuria or hematuria. SKIN: Denies rash or itching. MUSCULOSKELETAL: Denies back pain, joint pain, or myalgia. NEUROLOGIC: Denies headache, numbness, dizziness, or weakness. PSYCHIATRIC: Denies anxiety or depression. [facility] Past Medical History Medical History Aortic stenosis Atrial fibrillation CAD (coronary artery disease) CHF (congestive heart failure) Chronic hypoxemic respiratory failure Chronic insomnia COPD (chronic obstructive pulmonary disease) Depression Emphysema lung History of breast cancer With bilateral mastectomy and radiation HLD (hyperlipidemia) Hypertensive heart disease with heart failure Idiopathic peripheral neuropathy [place] (myocardial infarction) Pulmonary hypertension Shortness of Breath Supplemental oxygen dependent Surgical History Surgical History History of bilateral mastectomy History of partial hysterectomy Status post right knee replacement Stented coronary artery Total of 4 to cardiac catheterization with 2 stents each time Family History Family History Sibling Family history of lung cancer, Onset Age: 75 Family history of malignant neoplasm of breast in first degree relative, Onset Age: 72 Father Cerebrovascular accident Hypertension Mother Heart disease Daughter , brain cancer 2013 age 53 No problems noted. Social History Social History Social History: The patient lives with her who has Alzheimer's. Patient had 2 children but her daughter from brain cancer. Her son and son-in-law the durable power of county attorney. The patient tells me that she wants to be a full code. She just does not want to live on a ventilator. She will allow CPR in to be placed on a ventilator for brief period time but does not want to
[2020-11-13 16:08] LABS: Alveolar/Arterial O2 Gradient 67.4 mmHg; Base Excess ABG 10.7 mEq/l (+/-2.0); Device NASAL CANNULA; Fractional Inspired Oxygen 28 %; HCO3 ABG 36.3 mEq/l (22.0-26.0); Modified Allen's Test Pass; Oxygen Content ABG 18.2 %vol (16.0-22.0); Oxyhemoglobin 92.5 % THb (90.0-100.0); PCO2 ABG 51.5 mmHg (35.0-45.0); PO2 ABG 71.5 mmHg (80.0-100.0); PO2 FiO2 Ratio Arterial Blood 2.55 %; Site Drawn RIGHT RADIAL; pH ABG 7.466 (7.350-7.450)
== END 2020-11-13 18:57 | disposition home or self-care (01) ==
PROVIDERS: General Practice; Emergency Provider Emergency Medicine; PCP Family Medicine
DX: J44.1 Chronic obstructive pulmonary disease with (acute) exacerbation (principal); I11.0 Hypertensive heart disease with heart failure; I50.9 Heart failure, unspecified; F17.210 Nicotine dependence, cigarettes, uncomplicated; I48.91 Unspecified atrial fibrillation; F32.9 Major depressive disorder, single episode, unspecified; I25.2 Old myocardial infarction; I25.10 Atherosclerotic heart disease of native coronary artery without angina pectoris
CPT/HCPCS: 36415; 36600; 71046; 80048; 82805; 83880; 84484; 85025; 85610; 85730; 93005; 99284

== ENCOUNTER 2020-12-08 21:53 | Inpatient (IN) | payer MEDICARE, SELFPAY ==
--- NOTE | ~2020-12-08 | CT_ITS ---
EXAMINATION: CT brain wo con DATE: 12/08/2020 22:35 INDICATION: Syncope. TECHNIQUE: Computed tomography (CT) of the head was performed without intravenous contrast. The mA wa s adjusted according to patient size. Iterative reconstruction technique was employed. The dose-lengt h product was 605.33 mGy-cm. COMPARISON: Head CT 09/27/2020 FINDINGS: There are old infarcts in the left basal ganglia. There is a small old infarct in right fro ntoparietal region. There are scattered areas of low attenuation in the cerebral white matter. There is no intracranial hemorrhage, acute infarction, or abnormal intracranial mass lesion. The ventricles are normal in size. There are likely changes of ocular lens replacement surgeries. The paranasal sin uses are clear. The mastoid air cells are normal. IMPRESSION: 1. 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 2. Stable moderate nonspecific cerebral white matter disease, which likely represents chronic small v essel ischemic disease. Reviewed, dictated and finalized at location A. INE STRAP BUCKLER IMPRESSION: 1. 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 2. Stable moderate nonspecific cerebral white matter disease, which likely repr esents chronic small vessel ischemic disease.
--- NOTE | ~2020-12-08 | US_ITS ---
EXAMINATION: US carotid duplex BI DATE: 12/09/2020 15:48 INDICATION: Syncope. Cerebral atherosclerosis. TECHNIQUE: Grayscale, color Doppler, and pulsed Doppler images of the cervical carotid arteries were obtained. The degree of vessel stenosis is placed in one of the following categories: normal, <50%, 5 0-69%, >=70% but less than near-occlusion, near-occlusion, or total occlusion. Note that percent sten osis relative to normal distal artery lumen diameter is indirectly measured from velocity measurement s as described by Chevy, et al. Radiology 2003; 229:340-346. COMPARISON: None. FINDINGS: RIGHT: The right common carotid artery (CCA) peak systolic velocity (PSV) is 33 cm/s. The right internal car otid artery (ICA) PSV is 71 cm/s. The right ICA end-diastolic velocity (EDV) is 11 cm/s. The right IC A/CCA PSV ratio is 2.2. Grayscale and color Doppler images yield an estimate of <50% diameter reducti on from plaque in the ICA. The external carotid artery (ECA) PSV is 57 cm/s. There is antegrade flow in the right vertebral artery. LEFT: The left CCA PSV is 55 cm/s. The left ICA PSV is 104 cm/s. The left ICA EDV is 9 cm/s. The left ICA/C CA PSV ratio is 1.9. Grayscale and color Doppler images yield an estimate of <50% diameter reduction from plaque in the ICA. The ECA PSV is 116 cm/s. There is antegrade flow in the left vertebral artery . IMPRESSION: 1. <50% stenosis in the right internal carotid artery. 2. <50% stenosis in the left internal carotid artery. Reviewed, dictated and finalized at location B. RVISOR FORCE ADJUSTMENT
--- NOTE | ~2020-12-08 | XR_ITS ---
EXAMINATION: XR chest 1V DATE: 12/08/2020 22:41 INDICATION: Syncope. TECHNIQUE: A single frontal view of the chest was obtained. COMPARISON: Chest 2 views 11/13/2020, chest CT 09/27/2020 FINDINGS: The lungs are hyperexpanded with lucencies and interstitial opacities, consistent with emph ysema. No pleural effusion or pneumothorax. The heart size is normal. There are surgical clips in lef t axilla. There is a right breast implant. IMPRESSION: 1. Emphysema. Reviewed, dictated and finalized at location A. APPRAISER IMPRESSION: 1. Emphysema.
--- NOTE | ~2020-12-08 | US_ITS ---
EXAMINATION: US renal BI DATE: 12/10/2020 10:36 INDICATION: Acute renal insufficiency TECHNIQUE: Multiple ultrasound grayscale images of the kidneys were obtained. COMPARISON: Chest CT dated 09/27/2020 FINDINGS: The right kidney measures 9.2 x 3.0 x 3.9 cm. The left kidney measures 9.2 x 4.8 x 3.7 cm. The kidney s demonstrate normal echogenicity with diffuse mild cortical thinning at both kidneys. 1.7 cm hypoech oic lesion along the medial aspect of the right kidney and 1.6 cm hypoechoic lesion at the upper pole of the left kidney which remain equivocal for more common renal cysts versus less common renal neopl asm. There are shadowing echogenic calcifications at the mid and lower left kidney which appear to co rrespond to a couple larger renal stones at several locations on prior CT. There is no hydronephrosis in either kidney. There are a few bladder diverticula which can be seen with chronic outlet obstruct ion or neurogenic bladder. IMPRESSION: 1. A couple shadowing renal stones at the lower pole of the left kidney. No hydronephrosis in either the left or right kidney. 2. A couple indeterminate hypoechoic renal lesions measuring 1.7 cm the right kidney and 1.6 cm the l eft kidney without evident correlate on the prior CT. Differential would include renal cysts, artifac tual appearance of the renal papilla or solid neoplasm such as renal cell carcinoma. If patient would be a potential surgical candidate and this would affect clinical management would consider pre and p ostcontrast MRI or CT for definitive determination. 3. A few bladder diverticula suggesting either chronic outlet obstruction or neurogenic bladder. Reviewed, dictated and finalized at location B. TER WAITER IMPRESSION: 1. A couple shadowing renal stones at the lower pole of the left kidney. No hy dronephrosis in either the left or right kidney. 2. A couple indeterminate hypoechoic renal lesions measuring 1.7 cm the right k idney and 1.6 cm the left kidney without evident correlate on the prior CT. Dif ferential would include renal cysts, artifactual appearance of the renal papill a or solid neoplasm such as renal cell carcinoma. If patient would be a potenti al surgical candidate and this would affect clinical management would consider pre and postcontrast MRI or CT for definitive determination. 3. A few bladder diverticula suggesting either chronic outlet obstruction or ne urogenic bladder.
--- NOTE | ~2020-12-08 | US_ITS ---
EXAMINATION: US venous doppler [facility] DATE: 12/10/2020 18:20 INDICATION: Bilateral lower limb swelling TECHNIQUE: Guevara scale images without and with compression and Doppler images of the bilateral lower e xtremity veins were obtained. COMPARISON: None FINDINGS: There is limited view of the bilateral calf veins due to bandages however these appear norm al. The right common femoral vein, profunda femoral vein, femoral vein, popliteal vein, peroneal trunk, p osterior tibial veins, and greater saphenous vein are patent. The left common femoral vein, profunda femoral vein, femoral vein, popliteal vein, peroneal trunk, po sterior tibial veins, and greater saphenous vein are patent. IMPRESSION: 1. Patent bilateral lower extremity veins. No evidence of deep venous thrombosis. Reviewed, dictated and finalized at location A. HAND IMPRESSION: 1. Patent bilateral lower extremity veins. No evidence of deep venous thrombosi s.
[2020-12-08 22:02] VITALS: PULSE 61; RESP 20; TEMP 36.3; O2SAT 97
--- NOTE | 2020-12-08 22:04 | ECG_ITS ---
Measurements Intervals [place] Rate: 66 P: ID: 0 QRS: 127 QRSD: 90 T: 99 QT: 466 QTc: 490 Interpretive Statements ATRIAL FIBRILLATION RIGHT AXIS DEVIATION ANTEROSEPTAL INFARCT, AGE INDETERMINATE BORDERLINE ST-T WAVE ABNORMALITY- INF/HIGH LAT LEADS ABNORMAL ECG Electronically Signed On 12-09-2020 7:05:25 BOTTLING ROOM WORKER by Jus eKssler D.O.
--- NOTE | 2020-12-08 22:07 | ED.GENADULT ---
HPI - General Adult General Chief complaint: Syncope Stated complaint: syncope Time Seen by Provider: 12/08/20 21:56 Source: RN notes reviewed History of Present Illness HPI narrative: Patient presents to emergency department from [facility] via EMS for syncopal episode. Patient was walking back to the bathroom assisted when she became dizzy and had a syncopal episode. Patient was caught by staff and did not fall to the ground or strike her head. Patient currently denies any dizziness in room she denies any fevers or chills chest pain shortness of breath or any other symptoms patient does note that she has been having swelling of her lower extremities with wrapping in place Related Data Home Medications Medication Instructions Recorded Confirmed diltiazem HCl 120 mg tablet 120 mg PO TID 11/03/19 11/13/20 Xarelto 15 mg PO DAILY 09/27/20 11/13/20 digoxin 0.125 mcg PO DAILY 09/27/20 11/13/20 fluticasone propionate 50 1 spray INTRANASAL DAILY 11/13/20 11/13/20 mcg/actuation nasal spray,suspension Allergies Allergy/AdvReac Type Severity Reaction Status Date / Time codeine AdvReac Nausea and Verified 11/13/20 14:24 Vomiting Review of Systems Review of Systems: Narrative: Gen.: Denies fevers or chills ENT: Denies congestion Respiratory: Denies shortness of breath or cough CV: Reports syncope GI: Denies abdominal pain nausea, emesis or diarrhea Musculoskeletal: Denies back pain or muscle pain Neuro: Denies numbness, tingling, weakness or focal weakness Skin: Denies rash Except as documented, all other systems reviewed and negative [facility] Past Medical History Medical History Aortic stenosis Atrial fibrillation CAD (coronary artery disease) CHF (congestive heart failure) Chronic hypoxemic respiratory failure Chronic insomnia COPD (chronic obstructive pulmonary disease) Depression Emphysema lung History of breast cancer With bilateral mastectomy and radiation HLD (hyperlipidemia) Hypertensive heart disease with heart failure Idiopathic peripheral neuropathy [place] (myocardial infarction) Pulmonary hypertension Shortness of Breath Supplemental oxygen dependent Surgical History Surgical History History of bilateral mastectomy History of partial hysterectomy Status post right knee replacement Stented coronary artery Total of 4 to cardiac catheterization with 2 stents each time Family History Family History Sibling Family history of lung cancer, Onset Age: 75 Family history of malignant neoplasm of breast in first degree relative, Onset Age: 72 Father Cerebrovascular accident Hypertension Mother Heart disease Daughter , brain cancer 2013 age 53 No problems noted. Social History Social History Social History: The patient lives with her who has Alzheimer's. Patient had 2 children but her daughter from brain cancer. Her son and son-in-law the durable power of trade mark attorney. The patient tells me that she wants to be a full code. She just does not want to live on a ventilator. She will allow CPR in to be placed on a ventilator for brief period time but does not want to live like a vegetable. She is retired. She used to smoke and quit in the 80s. No alcohol or illicit drugs. Smoking packs per day: 0.5 Smoking cigarettes per day: 10.0 Years smoked: 30 Smoking pack-years: 15.00 Smoking status: Former smoker Tobacco type: cigarettes Second hand tobacco smoke exposure: No Smoking end date: 10/25/89 Additional smoking assessment comments: started smoking at age 18 Alcohol intake: never Substance use: never Substance use type: does not use Gender identity (if verbalized by the patient): Female Spiritual care concerns: No Exam
[2020-12-08 22:19] VITALS: BP 88/50
[2020-12-08 22:22] LABS: Basophils Percent Auto 0.5 % (0.2-1.2); Eosinophils Absolute Auto 0.1 K/mm3 (0-0.3); Eosinophils Percent Auto 1.4 % (0-4.4); Hematocrit 39.7 % (37.0-47.0); Hemoglobin 12.3 g/dL (12.0-15.0); Immature Granulocyte Absolute 0.07 K/mm3 (0.00-0.031); Lymphocytes Absolute Auto 1.81 K/mm3 (0.9-3.2); Lymphocytes Percent Auto 24.8 % (18.3-44.2); Mean Corpuscular Hemoglobin 30.3 pg (26-34); Mean Corpuscular Volume 97.8 fl (80-100); Mean Platelet Volume 9.5 fl (7.4-10.4); Monocytes Absolute Auto 0.5 K/mm3 (0.1-0.6); Monocytes Percent Auto 7.4 % (2.6-8.5); Neutrophils Absolute Auto 4.7 K/mm3 (1.3-6.7); Neutrophils Percent Auto 64.9 % (45.5-73.1); Platelet Count Result 240 k/mm3 (150-375); Red Blood Count 4.06 M/mm3 (4.2-5.4); Red Cell Distribution Width 14.6 % (11.5-14.5); White Blood Count 7.3 K/mm3 (4.5-10.0)
[2020-12-08] MEDS: SODIUM CHLORIDE 0.9% IV 1,000 ML 999 ML IV CONT (22:27)
[2020-12-08 22:32] LABS: INR 1.9
[2020-12-08 22:34] LABS: Alanine Aminotransferase 57 U/L (4-35); Albumin Level 3.1 g/dL (3.5-5.1); Alkaline Phosphatase 66 U/L (38-126); Anion Gap 5 mmol/L (8-16); Aspartate Amino Transferase 45 U/L (14-36); Bilirubin,Total 0.9 mg/dL (0.2-1.3); Blood Urea Nitrogen 47 mg/dL (7-17); Calcium 8.6 mg/dL (8.4-10.2); Carbon Dioxide 39 mmol/L (22-30); Chloride 93 mmol/L (98-107); Estimated Glomerular Filt Rate 29; Glucose 92 mg/dL (65-105); Potassium 4.1 mmol/L (3.4-5.0); Sodium 137 mmol/L (137-145)
[2020-12-08 22:47] LABS: NT Pro B Type Natriuretic Pept 11600 PG/ML (5-100); Troponin I 0.103 ng/mL (0.000-0.034)
[2020-12-08 23:07] LABS: Digoxin 0.5 ng/mL (0.8-2.0)
[2020-12-08 23:11] VITALS: BP 100/70; PULSE 72; RESP 18; O2SAT 99
[2020-12-09] VITALS (24 sets, daily range): BP systolic 87–129; BP diastolic 41–88; PULSE 47–96; RESP 16–20; TEMP 35.6–36.6; O2SAT 92–100; BMI 28.3
[2020-12-09 00:15] LABS: Add Urine Microscopic? YES; Appearance Urine Cloudy (Clear); Bacteria Urine 3+ /hpf; Bilirubin Urine Negative (Negative); Blood Urine Negative (Negative); Color Urine Yellow (Yellow); Glucose Urine UA Negative (Negative); Ketones Urine Negative (Negative); Leukocyte Esterase Ur 1+ LEU/UL (Negative); Nitrate Urine Positive (Negative); Protein Urine Negative (Negative); Specific Grav Ur 1.011 (1.001-1.035); Squamous Epithelial Cell Urine Few /hpf (Few)
[2020-12-09] MEDS: SODIUM CHLORIDE 0.9% IV 1,000 ML 999 ML IV CONT (00:16)
[2020-12-09 01:19] LABS: Lactic Acid Reflex 3.2 mmol/L (0.7-2.1)
[2020-12-09] MEDS: SODIUM CHLORIDE 0.9% IV 2,400 ML/1,000 ML BAG 999 ML IV CONT (02:13)
--- NOTE | 2020-12-09 03:30 | PC.NURSE ---
This patient, Kim Henderson, was admitted to IMU Room 205-01. Patient/family oriented to hospital policies and general routines including ID bracelet, bed and alarms, visiting hours, pain management, procedures, bathroom and other care routines, personal items, smoking policy, room service/diet, and visiting hours. Information on how to activate the Rapid Response Team has been discussed. Patient/Family are encouraged to report perceived risks to care and to ask questions if they do not understand what they are told or what they should do.
[2020-12-09 04:06] LABS: Reflex Lactic Acid Yes or No Add Lactic
[2020-12-09] MEDS: SODIUM CHLORIDE 0.9% IV 1,000 ML 80 ML IV CONT (04:12)
[2020-12-09] MEDS: MELATONIN 3 MG TABLET PO ×2 (04:12→20:22)
[2020-12-09 04:32] LABS: Lactic Acid 1.5 mmol/L (0.7-2.1)
[2020-12-09 04:46] LABS: Troponin I 0.111 ng/mL (0.000-0.034)
[2020-12-09 09:06] LABS: Basophils Absolute Auto 0.1 K/mm3 (0.0-0.1); Basophils Percent Auto 0.9 % (0.2-1.2); Eosinophils Absolute Auto 0.1 K/mm3 (0-0.3); Eosinophils Percent Auto 1.7 % (0-4.4); Hematocrit 40.5 % (37.0-47.0); Hemoglobin 12.5 g/dL (12.0-15.0); Immature Granulocyte Absolute 0.03 K/mm3 (0.00-0.031); Immature Granulocyte Percent A 0.4 % (0-0.5); Lymphocytes Absolute Auto 2.12 K/mm3 (0.9-3.2); Lymphocytes Percent Auto 30.1 % (18.3-44.2); Mean Corpuscular HGB Conc 30.9 g/dl (32-36); Mean Corpuscular Hemoglobin 30.5 pg (26-34); Mean Corpuscular Volume 98.8 fl (80-100); Mean Platelet Volume 9.9 fl (7.4-10.4); Monocytes Absolute Auto 0.6 K/mm3 (0.1-0.6); Monocytes Percent Auto 8.7 % (2.6-8.5); Neutrophils Absolute Auto 4.1 K/mm3 (1.3-6.7); Neutrophils Percent Auto 58.2 % (45.5-73.1); Platelet Count Result 226 k/mm3 (150-375); Red Cell Distribution Width 14.6 % (11.5-14.5); White Blood Count 7.1 K/mm3 (4.5-10.0)
[2020-12-09 09:13] LABS: Alanine Aminotransferase 62 U/L (4-35); Alkaline Phosphatase 74 U/L (38-126); Anion Gap 5 mmol/L (8-16); Aspartate Amino Transferase 58 U/L (14-36); Bilirubin,Total 1.1 mg/dL (0.2-1.3); Blood Urea Nitrogen 45 mg/dL (7-17); Calcium 8.5 mg/dL (8.4-10.2); Carbon Dioxide 33 mmol/L (22-30); Chloride 99 mmol/L (98-107); Estimated CRCL calculation 25 ml/min; Estimated Glomerular Filt Rate 29; Glucose 85 mg/dL (65-105); Magnesium 1.6 mg/dL (1.6-2.3); Potassium 4.3 mmol/L (3.4-5.0); Sodium 137 mmol/L (137-145)
--- NOTE | 2020-12-09 09:45 | ECG_ITS ---
Measurements Intervals [place] Rate: 71 P: ME: 0 QRS: 133 QRSD: 89 T: 102 QT: 435 QTc: 473 Interpretive Statements ATRIAL FIBRILLATION RIGHT AXIS DEVIATION ANTEROSEPTAL INFARCT, AGE INDETERMINATE BORDERLINE T WAVE ABNORMALITY- HIGH LATERAL LEADS BASELINE ARTIFACT- I, III, AVL ABNORMAL ECG Electronically Signed On 12-09-2020 12:19:44 AUDIO INSTALLER by Jus Kessler D.O.
--- NOTE | 2020-12-09 09:46 | PM.IMHP ---
H&P: HPI History of Present Illness Date/Time: 12/09/20 09:15 Chief Complaint: Dizziness Narrative: Date of Service 12/09/20 0965 The supervising physician for this history and physical is Dr Patricia Herman. Ms. Henderson is a pleasant 80yo F with history of CHF, severe emphysema with chronic hypoxic respiratory failure normally on 2L/min home O2, aortic stenosis, coronary artery disease, atrial fibrillation, CKD who presented to the ED from [facility] for evaluation of dizziness. The patient tells me she was walking back from the bathroom with correction staff and got back to her bed and began to feel dizzy. She denies passing out, falling, hitting head. She thinks staff told her her blood pressure was low. She describes chronic dyspnea on exertion that she notices all change. She denies any chest pain or nausea during this episode or at present. She deals with chronic lower extremity swelling which is significant today however she tells me her legs look good and her swelling is improved. She has a large fluid filled blister on the top of her left foot which she describes has been there for about 3 days. She tells me she has been at [facility] for 1 week after she was discharged from being admitted at [place] for her heart and breathing , we will request records. At present, she has no further dizziness and is feeling back to normal. She is known to me having discharged her in Sep 2020 when she was treated for CHF exacerbation and a fib, she tells me she has been feeling bad since she was discharged and has been in and out of [place] since. Workup thus far shows elevated BNP 11,000; elevated troponins 0.059 -> 0.103 -> 0.111; EKG shows atrial fibrillation rate [address] changes in inferolateral leads. Chest XR shows emphysema but clearer than her CXR Sep 2020 when I saw her last. 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 Routine labs show evidence of her chronic kidney disease, mild transaminitis. UA with positive nitrate, positive leukocyte esterase with reflex culture pending, blood cultures pending. She has been started on IV ceftriaxone for abnormal UA. She is admitted to the hospitalist service for evaluation of dizziness and management of possible UTI and several comorbidities. Given her significant cardiac history and new elevated troponins, I have consulted cardiology however her current paper carrier is Dr Jarrell Hagan at [facility]. Review of Systems Review of Systems: Narrative: Episode of dizziness yesterday after walking to bathroom, no resolved. Denies syncope. Did not fall or hit her head. Denies chest pain, nausea, diaphoresis during this episode or at present. No vomiting or abdominal pain. No fevers or cough. She reports dyspnea on exertion is at her baseline and denies shortness of breath at rest. She tells me her lower extremity edema is actually improved since her paper carrier increased her Bumex, and that the large fluid-filled blister on her left foot started a few days ago over the weekend. She reports she has been eating and drinking fine. No headaches. No known exposure to COVID positive persons.Twelve systems were reviewed with pertinent positives and negatives as per HPI. Except as documented, all other systems were reviewed and are negative. [facility] Past Medical History Medical History (Updated 12/09/20 @ 18:46 by Alison Zarco PA-C) Aortic stenosis Atrial fibrillation CAD (coronary artery disease) She previously saw [facility] for years (Dr Mirna Ocampo) but most recently follows with Dr Jarrell Hagan at [place] last visit 11/14/20. CHF (congestive heart failure) Chronic hypoxemic respiratory failure Chronic insomnia COPD (chronic obstructive pulmonary disease) Depression Emphysema lung History of breast cancer With bilateral mastectomy and radiation
[2020-12-09] MEDS: FLUTICASONE PROPIONATE 0.05% NA SPR 16 GM BTL (*BKC) 1 SPRAY NASAL (10:07)
[2020-12-09] MEDS: BUMETANIDE 1 MG TABLET 2 MG PO ×2 (10:08→16:56)
[2020-12-09] MEDS: dilTIAZem HCL 60 MG TABLET 120 MG PO (10:08)
[2020-12-09] MEDS: GABAPENTIN 300 MG CAPSULE 600 MG PO ×3 (10:08→20:22)
[2020-12-09] MEDS: LOSARTAN POTASSIUM 100 MG TABLET PO (10:09)
[2020-12-09] MEDS: METOPROLOL TARTRATE 12.5 MG TABLET PO ×2 (10:09→20:22)
[2020-12-09] MEDS: POTASSIUM CHLORIDE 10 MEQ TABLET.ER PO ×2 (10:09→16:55)
[2020-12-09] MEDS: PRAVASTATIN SODIUM 20 MG TABLET PO (10:09)
[2020-12-09] MEDS: MAGNESIUM SULF 2 GM/WATER 50ML 2 GM/50 ML BAG IVPB (10:11)
--- NOTE | 2020-12-09 11:44 | PM.CNCAR ---
Assessment and Plan Assessment and plan (1) NSTEMI (non-ST elevated myocardial infarction): Code(s): I21.4 - Non-ST elevation (NSTEMI) myocardial infarction Status: Acute Assessment and Plan: Patient is an 80-year-old white woman with history of heart failure with preserved ejection fraction, coronary artery disease status post myocardial infarction, status post PCI with 2 stents, atrial fibrillation (on Xarelto), moderate aortic valve stenosis, hypertension, hyperlipidemia, chronic kidney disease, former tobacco dependence, COPD, emphysema, chronic respiratory failure (on 2 liters/minute supplemental oxygen at home), severe pulmonary hypertension, COVID-19 pneumonia (September 2020), who is seen in cardiac consultation for non ST elevation myocardial infarction. -troponin I was initially elevated at 0.103, then 0.111 7 hours later, with minimal somewhat flat elevation of troponin I in setting of acute on chronic renal failure and acute on chronic heart failure with preserved ejection fraction. -Patient denies chest pain, and EKG without evidence of acute injury. -Patient has elevated creatinine this admission of 1.7, with creatinine of 1.2 on recent labs noted by her hearing and speech assistant Dr. Hagan at [facility], when he last saw her 11/14/2020 as an outpatient. -Given her current elevated creatinine, significant excoriations with skin breakdown involving the bilateral lower extremities, with increased edema in recent weeks currently improving, and given patient's preference to have her previously anticipated left and right heart catheterization performed at [facility] with her new hearing and speech assistant Dr. Hagan, will defer to patient's preference and hold off on invasive evaluation at present, allowing this to be performed at [facility] in the coming weeks. -Given her history of PCI with 2 stents, resumed aspirin. -continue Xarelto as per outpatient regimen in setting of atrial fibrillation. -continue statin as per outpatient regimen, but not increasing statin given elevated LFTs at present. (2) Dizziness: Code(s): R42 - Dizziness and giddiness Status: Acute Assessment and Plan: - Resolved. - She needs close follow-up in the setting of her moderate aortic valve stenosis as per recent outpatient echo (3) Atrial fibrillation: Qualifiers: Atrial fibrillation type: unspecified Qualified Code(s): I48.91 - Unspecified atrial fibrillation Code(s): I48.91 - Unspecified atrial fibrillation Status: Chronic Assessment and Plan: - Continue Xarelto as per outpatient regimen. - given patient's sinus bradycardia as low as 48 beats per minute this admission, her report of bradycardia while on digoxin at [facility] recently, and given interaction between diltiazem and digoxin, stopped digoxin (level subtherapeutic at 0.5 this admission) and decreased her diltiazem dose from 120 mg to 90 mg t.i.d. - continue low-dose metoprolol tartrate 12.5 mg b.i.d.. (4) Aortic stenosis: Qualifiers: Cardiac valve disease etiology: etiology unspecified Qualified Code(s): I35.0 - Nonrheumatic aortic (valve) stenosis Code(s): I35.0 - Nonrheumatic aortic (valve) stenosis Status: Chronic Assessment and Plan: - patient reports she had an echocardiogram approximately 6 months ago at [facility], with echo results noted in the outpatient note 11/14/2020 by her new hearing and speech assistant Dr. Hagan at [facility]: Left ventricular ejection fraction 63%, right ventricular pressure overload pattern to the LV with moderate tricuspid regurgitation, evidence of severe pulmonary hypertension with right ventricular systolic pressure 73 mmHg, mild mitral and aortic regurgitation, moderate aortic valve stenosis with mean gradient of 31 and a valve area of 0.9 centimeter squared. - Dr. Hagan, her primary hearing and speech assistant at [facility]
[2020-12-09] MEDS: SILVERGEL (ELTA) 45 ML 1 APPLIC TOPICAL (16:54)
[2020-12-09] MEDS: RIVAROXABAN 15 MG TABLET PO (16:56)
[2020-12-09] MEDS: ASPIRIN 81 MG CHEWABLE TABLET 324 MG PO (20:21)
[2020-12-09] MEDS: MIRTAZAPINE 15 MG TABLET PO (20:23)
[2020-12-09] MEDS: dilTIAZem HCL 30 MG TABLET PO (21:57)
[2020-12-09] MEDS: dilTIAZem HCL 60 MG TABLET PO (21:58)
[2020-12-10] VITALS (18 sets, daily range): BP systolic 95–120; BP diastolic 48–83; PULSE 50–100; RESP 14–21; TEMP 36.3–36.9; O2SAT 92–100
--- NOTE | 2020-12-10 02:53 | PC.NURSE ---
This patient, Kim Henderson, was transferred to [[id number] ] on 12/10/20 at 0253. Personal belongings sent with patient. Report given to [ Karla robles]. Appropriate documentation sent with patient.
--- NOTE | 2020-12-10 03:06 | PC.NURSE ---
RECEIVED PT FROM IMU PER BED. VOICES NO C/O
[2020-12-10] MEDS: ASPIRIN 81 MG ENTERIC TABLET PO ×2 (05:28→08:51)
[2020-12-10 05:34] LABS: Basophils Absolute Auto 0.1 K/mm3 (0.0-0.1); Basophils Percent Auto 0.8 % (0.2-1.2); Eosinophils Absolute Auto 0.1 K/mm3 (0-0.3); Eosinophils Percent Auto 1.8 % (0-4.4); Hematocrit 38.4 % (37.0-47.0); Hemoglobin 11.8 g/dL (12.0-15.0); Immature Granulocyte Absolute 0.05 K/mm3 (0.00-0.031); Immature Granulocyte Percent A 0.7 % (0-0.5); Lymphocytes Absolute Auto 2.07 K/mm3 (0.9-3.2); Lymphocytes Percent Auto 29.3 % (18.3-44.2); Mean Corpuscular HGB Conc 30.7 g/dl (32-36); Mean Corpuscular Hemoglobin 29.2 pg (26-34); Mean Platelet Volume 9.7 fl (7.4-10.4); Monocytes Absolute Auto 0.6 K/mm3 (0.1-0.6); Monocytes Percent Auto 8.8 % (2.6-8.5); Neutrophils Absolute Auto 4.1 K/mm3 (1.3-6.7); Neutrophils Percent Auto 58.6 % (45.5-73.1); Platelet Count Result 217 k/mm3 (150-375); Red Blood Count 4.04 M/mm3 (4.2-5.4); Red Cell Distribution Width 14.5 % (11.5-14.5); White Blood Count 7.1 K/mm3 (4.5-10.0)
[2020-12-10 05:53] LABS: Anion Gap 5 mmol/L (8-16); Blood Urea Nitrogen 51 mg/dL (7-17); Calcium 8.2 mg/dL (8.4-10.2); Carbon Dioxide 33 mmol/L (22-30); Chloride 97 mmol/L (98-107); Estimated CRCL calculation 19 ml/min; Estimated Glomerular Filt Rate 20; Glucose 90 mg/dL (65-105); Magnesium 2.2 mg/dL (1.6-2.3); Potassium 4.4 mmol/L (3.4-5.0); Sodium 135 mmol/L (137-145)
[2020-12-10] MEDS: POTASSIUM CHLORIDE 10 MEQ TABLET.ER PO ×2 (08:49→17:32)
[2020-12-10] MEDS: FLUTICASONE PROPIONATE 0.05% NA SPR 16 GM BTL (*BKC) 1 SPRAY NASAL (08:51)
[2020-12-10] MEDS: PRAVASTATIN SODIUM 20 MG TABLET PO (08:53)
[2020-12-10] MEDS: SILVERGEL (ELTA) 45 ML 1 APPLIC TOPICAL (08:53)
[2020-12-10] MEDS: GABAPENTIN 300 MG CAPSULE 600 MG PO ×3 (08:54→17:32)
--- NOTE | 2020-12-10 10:07 | PCPTNOTE ---
Attempted therapy session, Pt out of room for Ultra-Sound. Will attempt again.
--- NOTE | 2020-12-10 10:30 | PC.NURSE ---
Dr. Tovar on floor made aware pt refused Am losartan as she did not want her blood pressure to drop, he stated that good as he is going to D/C due to labs.
--- NOTE | 2020-12-10 10:35 | PC.NURSE ---
To Radiology per stretcher
--- NOTE | 2020-12-10 11:00 | PC.NURSE ---
Returned from radiology per stretcher
--- NOTE | 2020-12-10 11:39 | PM.PNCARD ---
Progress Note: A&P Assessment and Plan (1) CHF (congestive heart failure): Qualifiers: Heart failure type: unspecified Heart failure chronicity: acute on chronic Qualified Code(s): I50.9 - Heart failure, unspecified Code(s): I50.9 - Heart failure, unspecified Status: Acute Assessment and Plan: - Patient is an 80-year-old white woman with history of heart failure with preserved ejection fraction, coronary artery disease status post myocardial infarction, status post PCI with 2 stents, atrial fibrillation (on Xarelto), moderate aortic valve stenosis, hypertension, hyperlipidemia, chronic kidney disease, former tobacco dependence, COPD, emphysema, chronic respiratory failure (on 2 liters/minute supplemental oxygen at home), severe pulmonary hypertension, COVID-19 pneumonia (September 2020), who is seen in cardiac consultation for volume overload and elevated troponin She has significant lower ext edema in the setting of diastolic CHF, pulmonary HTN and valvular disease She was resumed on Bumex PO 2 BID however her creatinine is rising. She will need diuresis at some point once assure her creatinine stable. her BP was relatively low yesterday to high 80s yesterday. Wonder if that caused LUISANA. Will hold Losartan and Cardizem. Will also hold digoxin for LUISANA (and pt refusing to take) Continue low dose Metoprolol for rate control Consider nephrology consult . (2) NSTEMI (non-ST elevated myocardial infarction): Code(s): I21.4 - Non-ST elevation (NSTEMI) myocardial infarction Status: Acute Assessment and Plan: -troponin I was initially elevated at 0.1 likely Type II [place] due to increased demand in setting of acute on chronic renal failure and acute on chronic heart failure with preserved ejection fraction. -Patient denies chest pain, and EKG without evidence of acute injury Follow 2D echo Not candidate for any intervention now due to LUISANA Continue ASA (history of PCI). Also on Xarelto 15 mg for h/o A fib (3) Atrial fibrillation: Qualifiers: Atrial fibrillation type: unspecified Qualified Code(s): I48.91 - Unspecified atrial fibrillation Code(s): I48.91 - Unspecified atrial fibrillation Status: Chronic Assessment and Plan: - Continue Xarelto as per outpatient regimen. Rate well controlled to slow. Hold Cardizem due to low BP. Hold Digoxin due to LUISANA. Continue Metoprolol .. (4) Dizziness: Code(s): R42 - Dizziness and giddiness Status: Acute Assessment and Plan: - Resolved. - She needs close follow-up in the setting of her moderate aortic valve stenosis as per recent outpatient echo (5) Aortic stenosis: Qualifiers: Cardiac valve disease etiology: etiology unspecified Qualified Code(s): I35.0 - Nonrheumatic aortic (valve) stenosis Code(s): I35.0 - Nonrheumatic aortic (valve) stenosis Status: Chronic Assessment and Plan: - patient reports she had an echocardiogram approximately 6 months ago at [facility], with echo results noted in the outpatient note 11/14/2020 by her new reliability technician Dr. Hagan at [facility]: Left ventricular ejection fraction 63%, right ventricular pressure overload pattern to the LV with moderate tricuspid regurgitation, evidence of severe pulmonary hypertension with right ventricular systolic pressure 73 mmHg, mild mitral and aortic regurgitation, moderate aortic valve stenosis with mean gradient of 31 and a valve area of 0.9 centimeter squared. - Dr. Hagan, her primary reliability technician at [facility], had ordered an additional outpatient echo which is pending. Subjective Date/time seen: 12/10/20 11:39 She feels about the same. Denies chest pain or dyspnea. Review of Systems Review of Systems: All systems reviewed & are unremarkable except as noted in HPI and below Exam Narrative: Exam Narrative: General: Very pleasant chronically ill-
[2020-12-10] MEDS: METOPROLOL TARTRATE 12.5 MG TABLET PO ×2 (12:17→20:01)
--- NOTE | 2020-12-10 15:57 | PM.IMPN ---
Progress Note: A&P Assessment and Plan (1) Dizziness: Code(s): R42 - Dizziness and giddiness Status: Acute Assessment and Plan: Likely due to low blood pressures -Patient presented from half-way for evaluation after an episode of dizziness. This happened after she was walking back from the bathroom. -No further episodes. CT brain without acute findings. Hypotension on arrival which may have caused her dizziness. Vertigo seems less likely since she has no further episodes. -will monitor for any further dizziness (2) Acute UTI: Code(s): N39.0 - Urinary tract infection, site not specified Status: Acute Assessment and Plan: Continue IV ceftriaxone (day 3) started in the ER for abnormal UA -urine culture is pending, will follow and adjust medications as appropriate -blood cultures with no growth to date (3) Elevated troponin: Code(s): R77.8 - Other specified abnormalities of plasma proteins Status: Acute Assessment and Plan: With no chest pain and history of elevated troponins and her last stay in November at [place] -troponins 0.059 -> 0.103 -> 0.111 -EKG shows atrial fibrillation rate [address] changes in inferolateral leads. -patient recently had a viral illness (COVID-19) and now she has significant swelling. The notes from [facility] stated she had trace pitting edema. -will order echo (4) Leg swelling: Code(s): M79.89 - Other specified soft tissue disorders Status: Acute Assessment and Plan: Could be due to acute HF since she recently had COVID-19 -DVT seems less likely due to being on xarelto -could be due right heart failure since pt has severe pulmonary HTN -Documentations from last month in [place] shows only trace edema so something has acutely happened -Her engine repair supervisor wanted to do a left and right heart cath prior to COVID. -she saw the engine repair supervisor 2 and had 2+ edema there but during her hospitlization the week after, the swelling had improved -Holding bumex for now due to LUISANA (5) LUISANA (acute kidney injury): Code(s): N17.9 - Acute kidney failure, unspecified Status: Acute Assessment and Plan: Cr jumped today from 1.7 yesterday to 2.3 today -Bumex held -u/s shows no etiology -It did show hypoechoic renal lesions that the pt does not want any further work up for. I did tell her if she changes her mind we could do further imaging. (6) CAD (coronary artery disease): Qualifiers: Coronary Disease-Associated Artery/Lesion type: unspecified vessel or lesion type [place] vs. transplanted heart: unspecified whether [place] or transplanted heart Associated angina: without angina Qualified Code(s): I25.10 - Atherosclerotic heart disease of [place] coronary artery without angina pectoris Code(s): I25.10 - Atherosclerotic heart disease of black[place] coronary artery without angina pectoris Status: Chronic Assessment and Plan: History significant for coronary disease s/p multiple stents she believes last was in 2007 by [facility]. -She used to follow with Dr Ocampo but most recently has seen Dr Jarrell Hagan at [place] last office visit 11/14/20 available in the computer. Appears he had plans for outpatient right and left heart catheterization outpatient. -will obtain echo (7) Atrial fibrillation: Qualifiers: Atrial fibrillation type: unspecified Qualified Code(s): I48.91 - Unspecified atrial fibrillation Code(s): I48.91 - Unspecified atrial fibrillation Status: Chronic Assessment and Plan: In atrial fibrillation, rate controlled on her home metoprolol and digoxin. -Long-term anticoagulation with Xarelto -Her external med rec shows new prescription of amiodarone 200mg daily prescribed 12/03/20 by [facility] but unsure if pt was taking it -Pt now on xarelto and metoprolol (8) Aortic stenosis: Qualifiers: C
[2020-12-10] MEDS: RIVAROXABAN 15 MG TABLET PO (17:33)
--- NOTE | 2020-12-10 17:40 | PC.NURSE ---
To Radiology per stretcher
[2020-12-10] MEDS: MIRTAZAPINE 15 MG TABLET PO (20:01)
[2020-12-10] MEDS: MELATONIN 3 MG TABLET PO (20:01)
[2020-12-11] VITALS (16 sets, daily range): BP systolic 113–154; BP diastolic 61–85; PULSE 62–115; RESP 16–21; TEMP 36.2–36.7; O2SAT 92–100
--- NOTE | 2020-12-11 | ECHO_ITS ---
Patient Info Name: Kim Henderson Age: 80 years : 1940 Gender: Female Ht: 67 in Wt: 180 lbs BSA: 1.98 m2 HR: 87 bpm BP: 135 / 81 mmHg Technical Quality: Good Exam Date: 12/11/2020 11:29 AM Exam Location: [facility] Pulmonary Exam Room: 249 Patient Status: Inpatient Admit Date: 12/11/2020 Staff Ordering Physician: Maria Del Rosario Verdugo PA-C Share Holder: Dilcia Ha RDCS Attending Provider: Maria Del Rosario Verdugo PA-C Referring Physician: Lucina CASTANEDA; Exam Type: CA echo doppler color flow Study Info Indications - MERRITT RECENT COVID Complete two-dimensional, color flow and Doppler transthoracic echocardiogram is performed. Summary 1. Complete two-dimensional, color flow and Doppler transthoracic echocardiogram is performed. 2. Left ventricular systolic function is normal, estimated at 60-65%. 3. There is mildly increased left ventricular wall thickness. 4. Left ventricular septal wall motion is abnormal. 5. Right ventricular chamber dimension is moderately enlarged. 6. Right ventricular systolic function is reduced. 7. There is mild aortic valve sclerosis. 8. There is mild aortic valve stenosis. 9. There is mild to moderate tricuspid valve regurgitation. 10. There is mild pulmonic regurgitation. Left Ventricle Left ventricular chamber dimension is normal. Left ventricular systolic function is normal, estimated at 60-65%. There is mildly increased left ventricular wall thickness. Left ventricular septal wall motion is abnormal. The left ventricular diastolic function is normal. Right Ventricle Right ventricular chamber dimension is moderately enlarged. Right ventricular systolic function is reduced. Left Atria Left atrial chamber dimension is normal. Right Atria Right atrial chamber dimension is normal. Aortic Valve The aortic valve is trileaflet. There is mild aortic valve sclerosis. There is mild aortic valve stenosis. There is no aortic valve regurgitation. Pulmonic Valve The pulmonic valve is normal. There is no pulmonic valve stenosis. There is mild pulmonic regurgitation. Mitral Valve The mitral valve has thickened leaflets and calcified leaflets. There is no mitral valve stenosis. There is no mitral valve regurgitation. Tricuspid Valve The tricuspid valve leaflets are normal. There is no significant tricuspid valve stenosis. There is mild to moderate tricuspid valve regurgitation. Severe pulmonary hypertension, estimated pulmonary arterial systolic pressure is 70 mmHg. Pericardium/Pleural The pericardium appears normal. There is no pericardial effusion. Inferior Vena Cava Normal inferior vena cava with >50% collapse upon inspiration consistent with elevated right atrial pressure, 10 mmHg. Aorta The aortic root size at the sinus of Valsalva is normal. The prox ascending aorta size is normal. Left Ventricular Outflow Tract Name Value Normal LVOT 2D LVOT Diameter 2.0 cm LVOT Doppler LVOT Peak Gradient 9 mmHg LVOT Mean Gradient 5 mmHg LVOT VTI 32 cm
[2020-12-11 05:51] LABS: Hematocrit 40.4 % (37.0-47.0); Hemoglobin 12.6 g/dL (12.0-15.0); Mean Corpuscular HGB Conc 31.2 g/dl (32-36); Mean Corpuscular Hemoglobin 29.8 pg (26-34); Mean Corpuscular Volume 95.5 fl (80-100); Platelet Count Result 188 k/mm3 (150-375); Red Blood Count 4.23 M/mm3 (4.2-5.4); Red Cell Distribution Width 14.6 % (11.5-14.5); White Blood Count 6.5 K/mm3 (4.5-10.0)
[2020-12-11 06:15] LABS: Alanine Aminotransferase 62 U/L (4-35); Alkaline Phosphatase 67 U/L (38-126); Anion Gap 2 mmol/L (8-16); Aspartate Amino Transferase 62 U/L (14-36); Blood Urea Nitrogen 49 mg/dL (7-17); Calcium 8.7 mg/dL (8.4-10.2); Carbon Dioxide 32 mmol/L (22-30); Chloride 100 mmol/L (98-107); Estimated CRCL calculation 22 ml/min; Estimated Glomerular Filt Rate 24; Glucose 85 mg/dL (65-105); Potassium 4.7 mmol/L (3.4-5.0); Sodium 134 mmol/L (137-145)
[2020-12-11] MEDS: FLUTICASONE PROPIONATE 0.05% NA SPR 16 GM BTL (*BKC) 1 SPRAY NASAL (09:12)
[2020-12-11] MEDS: ASPIRIN 81 MG ENTERIC TABLET PO (09:12)
[2020-12-11] MEDS: GABAPENTIN 300 MG CAPSULE 600 MG PO ×3 (09:13→17:46)
[2020-12-11] MEDS: PRAVASTATIN SODIUM 20 MG TABLET PO (09:14)
[2020-12-11] MEDS: POTASSIUM CHLORIDE 10 MEQ TABLET.ER PO ×2 (09:14→17:44)
[2020-12-11] MEDS: SILVERGEL (ELTA) 45 ML 1 APPLIC TOPICAL (09:15)
[2020-12-11] MEDS: METOPROLOL TARTRATE 12.5 MG TABLET PO ×2 (09:22→21:02)
--- NOTE | 2020-12-11 10:30 | PM.PNCARD ---
Progress Note: A&P Assessment and Plan (1) CHF (congestive heart failure): Qualifiers: Heart failure type: unspecified Heart failure chronicity: acute on chronic Qualified Code(s): I50.9 - Heart failure, unspecified Code(s): I50.9 - Heart failure, unspecified Status: Acute Assessment and Plan: 80-year-old female with extensive cardiac disease including HFpEF, CAD s/p PCI X2, atrial fibrillation (on Xarelto), moderate aortic valve stenosis,CKD, HTN, former tobacco dependence, COPD on home O2, severe pulmonary hypertension, COVID-19 pneumonia (September 2020), who is seen in cardiac consultation for volume overload and elevated troponin She has significant lower ext edema in the setting of diastolic CHF, pulmonary HTN and valvular disease She was resumed on Bumex PO 2 BID however her creatinine was rising. LUISANA is probably Likely in the setting of hypotension on admission. BP better now off Losartan and Cardizem. Creatinine down to 2 from 2.3. Will start Lasix 20 mg IV BID with close monitoring of kidney function and electrolytes Will also hold digoxin for LUISANA (and pt refusing to take) Continue low dose Metoprolol for rate control . (2) NSTEMI (non-ST elevated myocardial infarction): Code(s): I21.4 - Non-ST elevation (NSTEMI) myocardial infarction Status: Acute Assessment and Plan: -troponin I was initially elevated at 0.1 likely Type II OR due to increased demand in setting of acute on chronic renal failure and acute on chronic heart failure with preserved ejection fraction. -Patient denies chest pain, and EKG without evidence of acute injury She declined any intervention. Not candidate anyway at this time due to LUISANA Continue ASA (history of PCI). Also on Xarelto 15 mg for h/o A fib (3) Atrial fibrillation: Qualifiers: Atrial fibrillation type: unspecified Qualified Code(s): I48.91 - Unspecified atrial fibrillation Code(s): I48.91 - Unspecified atrial fibrillation Status: Chronic Assessment and Plan: - Continue Xarelto as per outpatient regimen. Rate well controlled on Metoprolol Stop Cardizem due to low BP. Stop Digoxin due to LUISANA. .. (4) Dizziness: Code(s): R42 - Dizziness and giddiness Status: Acute Assessment and Plan: - Resolved. - She needs close follow-up in the setting of her moderate aortic valve stenosis as per recent outpatient echo (5) Aortic stenosis: Qualifiers: Cardiac valve disease etiology: etiology unspecified Qualified Code(s): I35.0 - Nonrheumatic aortic (valve) stenosis Code(s): I35.0 - Nonrheumatic aortic (valve) stenosis Status: Chronic Assessment and Plan: - patient reports she had an echocardiogram approximately 6 months ago at [facility], with echo results noted in the outpatient note 11/14/2020 by her new arc trimmer Dr. Hagan at [facility]: Left ventricular ejection fraction 63%, right ventricular pressure overload pattern to the LV with moderate tricuspid regurgitation, evidence of severe pulmonary hypertension with right ventricular systolic pressure 73 mmHg, mild mitral and aortic regurgitation, moderate aortic valve stenosis with mean gradient of 31 and a valve area of 0.9 centimeter squared. - Dr. Hagan, her primary arc trimmer at [facility], had ordered an additional outpatient echo which is pending. Subjective Date/time seen: 12/11/20 10:30 No overnight events. Denies dyspnea. Still with significant lower ext edema Review of Systems Review of Systems: All systems reviewed & are unremarkable except as noted in HPI and below Exam Narrative: Exam Narrative: General: sitting up in bed in no acute distress. HEENT: Normocephalic, atraumatic, EOMI, PERRLA, oral mucosa moist. Neck: Supple. Chest: Diminished breath sounds bilaterally, respirations even and nonlabored. Tolerating her home oxygen re
[2020-12-11] MEDS: FUROSEMIDE INJ 40 MG/4 ML VIAL 20 MG IV PUSH ×2 (12:30→17:46)
--- NOTE | 2020-12-11 13:43 | PM.IMPN ---
Progress Note: A&P Assessment and Plan (1) Dizziness: Code(s): R42 - Dizziness and giddiness Status: Acute Assessment and Plan: Resolved, Likely due to low blood pressures -Patient presented from [facility] living for evaluation after an episode of dizziness. This happened after she was walking back from the bathroom. -No further episodes. CT brain without acute findings. Hypotension on arrival which may have caused her dizziness. Vertigo seems less likely since she has no further episodes. -will monitor for any further dizziness (2) Acute UTI: Code(s): N39.0 - Urinary tract infection, site not specified Status: Acute Assessment and Plan: Urine cx appears to be a contaminant -she has had no fevers or leukocytosis, will stop antibiotics -blood cultures with no growth to date (3) Elevated troponin: Code(s): R77.8 - Other specified abnormalities of plasma proteins Status: Acute Assessment and Plan: With no chest pain and history of elevated troponins and her last stay in November at [facility] -troponins 0.059 -> 0.103 -> 0.111 -EKG shows atrial fibrillation rate [address] changes in inferolateral leads. -patient recently had a viral illness (COVID-19) and now she has significant swelling. The notes from [facility] stated she had trace pitting edema. -echo pending, spoke with Cardiology (4) Leg swelling: Code(s): M79.89 - Other specified soft tissue disorders Status: Acute Assessment and Plan: Could be due to acute HF since she recently had COVID-19 -no DVT in either lower extremities -could be due right heart failure since pt has severe pulmonary HTN -Documentations from last month in [place] shows only trace edema so something has acutely happened -Her location man wanted to do a left and right heart cath prior to COVID. -she saw the location man 2 and had 2+ edema there but during her hospitalization the week after, the swelling had improved -Bumex restarted, will monitor creatinine (5) LUISANA (acute kidney injury): Code(s): N17.9 - Acute kidney failure, unspecified Status: Acute Assessment and Plan: Cr improved today to 2.0. -Bumex restarted, monitor creatinine -u/s shows no etiology -It did show hypoechoic renal lesions that the pt does not want any further work up for. I did tell her if she changes her mind we could do further imaging. (6) CAD (coronary artery disease): Qualifiers: Coronary Disease-Associated Artery/Lesion type: unspecified vessel or lesion type [place] vs. transplanted heart: unspecified whether [place] or transplanted heart Associated angina: without angina Qualified Code(s): I25.10 - Atherosclerotic heart disease of [place] coronary artery without angina pectoris Code(s): I25.10 - Atherosclerotic heart disease of [place] coronary artery without angina pectoris Status: Chronic Assessment and Plan: History significant for coronary disease s/p multiple stents she believes last was in 2007 by [facility]. -She used to follow with Dr Ocampo but most recently has seen Dr Jarrell Hagan at [place] last office visit 11/14/20 available in the computer. Appears he had plans for outpatient right and left heart catheterization outpatient. -await echo (7) Atrial fibrillation: Qualifiers: Atrial fibrillation type: unspecified Qualified Code(s): I48.91 - Unspecified atrial fibrillation Code(s): I48.91 - Unspecified atrial fibrillation Status: Chronic Assessment and Plan: In atrial fibrillation, rate controlled on her home metoprolol and digoxin. -Long-term anticoagulation with Xarelto -Her external med rec shows new prescription of amiodarone 200mg daily prescribed 12/03/20 by [facility] but unsure if pt was taking it -Pt now on xarelto and metoprolol (8) Aortic stenosis: Qualifiers: Cardiac valve diseas
--- NOTE | 2020-12-11 14:17 | PC.NURSE ---
On 12/11/20, the student, [Carmita Patel ], provided care and completed [facility] documentation on this patient. I have reviewed the student's documentation and agree with the findings.
--- NOTE | 2020-12-11 16:32 | PM.CNNEP ---
Assessment and Plan Assessment and plan (1) LUISANA (acute kidney injury): Code(s): N17.9 - Acute kidney failure, unspecified Status: Acute Assessment and Plan: The patient has acute kidney disease. This is most likely prerenal in nature as it is happened during add active diuretic episode. We can check urine electrolytes. It is unlikely that she has interstitial nephritis or glomerulonephritis but we will check urine eosinophils. Obstruction is always a possibility but the ultrasound was negative. Rhabdomyolysis is less likely but will check a CK just in case (2) CKD stage G3a/A1, GFR 45-59 and albumin creatinine ratio <30 mg/g: Code(s): N18.31 - Chronic kidney disease, stage 3a Status: Acute Assessment and Plan: She has chronic kidney disease. She does she does have longstanding hypertension which could affect the kidneys. In addition she has chronic pre renal azotemia due to her pulmonary hypertension also leading to an elevated BUN and creatinine. Diuretics are important because she needs to get rid of the swelling before it causes serious issues such as cellulitis and ulcers. However the diuretics do make the creatinine rise. I discussed this at length with the patient, the fine line between being too ?wet? and too ?dry? (3) Leg swelling: Code(s): M79.89 - Other specified soft tissue disorders Status: Acute Assessment and Plan: The patient has swelling. This is due to pulmonary hypertension She does not have much protein in the urine Her liver seems okay (4) Pulmonary hypertension: Code(s): I27.20 - Pulmonary hypertension, unspecified Status: Acute Assessment and Plan: The patient has pulmonary hypertension due to COPD. He also has aortic stenosis on the problem list in the chart and so this might contribute as well. (5) HLD (hyperlipidemia): Qualifiers: Hyperlipidemia type: unspecified Qualified Code(s): E78.5 - Hyperlipidemia, unspecified Code(s): E78.5 - Hyperlipidemia, unspecified Status: Acute Assessment and Plan: The patient is on pravastatin History of Present Illness Reason for Consult Consult date: 12/11/20 Chief Complaint Chief complaint: Syncope, elevated troponin, UTI History of Present Illness Narrative: Kim is a very pleasant 80-year-old lady who has multiple medical problems including chronic kidney disease, pulmonary hypertension, COPD, coronary artery disease status post VT, congestive heart failure, atrial fibrillation, hypertension, hyperlipidemia, depression, who has an elevated creatinine. She was at [facility] in [place] week before last. She had severe swelling and was given diuretics. She was seen by a film color tester there. Apparently by discharge or swelling is better and her kidneys were better. However we do not have any labs from that facility. The patient was discharged about 8 days ago. He says that over the next 5 days or so her swelling gradually worsened and so she came back into this hospital on Wednesday. On admission her creatinine was 1.7. She was given diuretics and her creatinine leif to 2.5 so renal consultation was requested. The patient does have longstanding elevated creatinine. Back in September her creatinine was about 1.7 as well. She says that she does not have any bloody urine, foamy urine, kidney stones, or bladder infections. She does not have any pain with urination. She does not take nonsteroidal anti-inflammatory agents. She has hypertension which is pretty well controlled. She has congestive heart failure. Echocardiogram was done and is pending. Review of Systems Constitutional: Constitutional: Reports no additional constitutional complaints Eyes: Eyes: Reports no additional eye complaints ENT: Reports system reviewed and no additional complaints, except as documented Cardiovascular: Cardiovascular: Reports no additiona
[2020-12-11] MEDS: RIVAROXABAN 15 MG TABLET PO (17:44)
[2020-12-11 18:20] LABS: Creatine Kinase 35 U/L (30-135)
[2020-12-11] MEDS: MELATONIN 3 MG TABLET PO (21:02)
[2020-12-11] MEDS: MIRTAZAPINE 15 MG TABLET PO (21:02)
[2020-12-11 21:10] LABS: Glucose Point of Care 148 (65-105)
[2020-12-12] VITALS (14 sets, daily range): BP systolic 96–136; BP diastolic 56–92; PULSE 88–124; RESP 16–21; TEMP 36.2–36.9; O2SAT 95–100
[2020-12-12 03:24] LABS: Creatinine Urine 46.8 mg/dL; Total Protein Urine Random 16 mg/dL; Ur Ttl Prot Creatinine Ratio 0.34 mg/mg (0-0.20)
[2020-12-12 04:03] LABS: Sodium Urine Random 50 meq/L
[2020-12-12 05:51] LABS: Hematocrit 38.5 % (37.0-47.0); Hemoglobin 12.1 g/dL (12.0-15.0); Mean Corpuscular HGB Conc 31.4 g/dl (32-36); Mean Corpuscular Volume 95.5 fl (80-100); Mean Platelet Volume 9.9 fl (7.4-10.4); Platelet Count Result 199 k/mm3 (150-375); Red Blood Count 4.03 M/mm3 (4.2-5.4); Red Cell Distribution Width 14.5 % (11.5-14.5); White Blood Count 8.9 K/mm3 (4.5-10.0)
[2020-12-12 06:11] LABS: Alanine Aminotransferase 48 U/L (4-35); Albumin Level 3.1 g/dL (3.5-5.1); Alkaline Phosphatase 75 U/L (38-126); Anion Gap 0 mmol/L (8-16); Aspartate Amino Transferase 38 U/L (14-36); Bilirubin,Total 1.1 mg/dL (0.2-1.3); Blood Urea Nitrogen 41 mg/dL (7-17); CRP 1.8 mg/dL (<1.0); Calcium 9.2 mg/dL (8.4-10.2); Carbon Dioxide 36 mmol/L (22-30); Chloride 99 mmol/L (98-107); Estimated CRCL calculation 25 ml/min; Estimated Glomerular Filt Rate 29; Glucose 97 mg/dL (65-105); Phosphorus 3.4 mg/dL (2.5-4.5); Potassium 4.6 mmol/L (3.4-5.0); Sodium 135 mmol/L (137-145)
--- NOTE | 2020-12-12 06:20 | PM.PNNEP ---
Progress Note: A&P Assessment and Plan (1) LUISANA (acute kidney injury): Code(s): N17.9 - Acute kidney failure, unspecified Status: Acute Assessment and Plan: The patient has acute kidney disease. This is most likely prerenal in nature as it is happened during add active diuresis Renal ultrasound shows left-sided kidney stone and bilateral hypoechogenic regions looking like cysts. No hydro. Urine electrolytes are non pre renal but the patient was on diuretics Urine eosinophils pending UA is bland CPK is normal The creatinine is improved. (2) CKD stage G3a/A1, GFR 45-59 and albumin creatinine ratio <30 mg/g: Code(s): N18.31 - Chronic kidney disease, stage 3a Status: Acute Assessment and Plan: She has chronic kidney disease. She does she does have longstanding hypertension which could affect the kidneys. In addition she has chronic pre renal azotemia due to her pulmonary hypertension also leading to an elevated BUN and creatinine. The creatinine is back to its baseline. (3) Leg swelling: Code(s): M79.89 - Other specified soft tissue disorders Status: Acute Assessment and Plan: The patient has swelling. She does not have much protein in the urine Her liver seems okay Most likely this is due to the pulmonary hypertension. We discussed the fine line between having too much swelling and good kidneys and and no swelling and worsened kidney function. Continue to find the happy medium between the 2. She seems there now. She is currently on IV furosemide. We can leave her on this while she is in the hospital. And when ready to go home from other standpoints she can switch to p.o. (4) Pulmonary hypertension: Code(s): I27.20 - Pulmonary hypertension, unspecified Status: Acute Assessment and Plan: The patient has pulmonary hypertension due to COPD. He also has aortic stenosis on the problem list in the chart and so this might contribute as well. (5) HLD (hyperlipidemia): Qualifiers: Hyperlipidemia type: unspecified Qualified Code(s): E78.5 - Hyperlipidemia, unspecified Code(s): E78.5 - Hyperlipidemia, unspecified Status: Acute Assessment and Plan: The patient is on pravastatin Subjective Date/time seen: 12/12/20 06:20 Interval history: The patient feels okay today. Her swelling is better than it was on admission. She is eager for discharge Review of Systems Cardiovascular: Cardiovascular: Reports no additional cardiovascular complaints Respiratory: Respiratory: Reports no additional respiratory complaints Gastrointestinal: Gastrointestinal: Reports no additional gastrointestinal complaints Genitourinary: Genitourinary: Reports no additional female genitourinary complaints Exam Narrative: Exam Narrative: WDWN in NAD skin no rash head ncat lungs clear but decreased breath sounds a mildly increased expiratory phase cor reg no rub or gallop abd BS+ nontender and soft ext 1 to2+ bilateral lower extremity edema. Objective Data Vital Signs Vital Signs: Vital Signs - 24 hr 12/11/20 07:57 12/11/20 08:00 12/11/20 09:14 Temperature 36.2 C L Pulse Rate 84 97 Respiratory Rate 18 Blood Pressure 154/75 H Pulse Oximetry 95 96 12/11/20 09:22 12/11/20 10:02 12/11/20 12:00 Temperature Pulse Rate 84 92 Respiratory Rate Blood Pressure Pulse Oximetry 92 12/11/20 13:02 12/11/20 16:00 12/11/20 18:30 Temperature 36.3 C L 36.6 C Pulse Rate 62 92 115 H Respiratory Rate 16 16 Blood Pressure 116/71 113/61 Pulse Oximetry 99 95 12/11/20 20:00 12/11/20 21:02 12/11/20 21:59 Temperature Pulse Rate 105 H 74 Respiratory Rate 16 Blood Pressure Pulse Oximetry 100 100 12/11/20 22:00 12/12/20 00:00 12/12/20 02:00 Temperature 36.7 C 36.9 C Pulse Rate 97 96 97 Respiratory Rate 20 20 Blood Pressure 140/85 130/74 Pulse Oximetry 98 98
[2020-12-12] MEDS: FLUTICASONE PROPIONATE 0.05% NA SPR 16 GM BTL (*BKC) 1 SPRAY NASAL (08:20)
[2020-12-12] MEDS: ASPIRIN 81 MG ENTERIC TABLET PO (08:20)
[2020-12-12] MEDS: FUROSEMIDE INJ 40 MG/4 ML VIAL 20 MG IV PUSH ×2 (08:21→17:26)
[2020-12-12] MEDS: GABAPENTIN 300 MG CAPSULE 600 MG PO ×3 (08:22→17:26)
[2020-12-12] MEDS: PRAVASTATIN SODIUM 20 MG TABLET PO (08:23)
[2020-12-12] MEDS: METOPROLOL TARTRATE 12.5 MG TABLET PO ×2 (08:23→20:14)
[2020-12-12] MEDS: POTASSIUM CHLORIDE 10 MEQ TABLET.ER PO ×2 (08:23→17:27)
[2020-12-12] MEDS: SILVERGEL (ELTA) 45 ML 1 APPLIC TOPICAL (08:24)
--- NOTE | 2020-12-12 12:36 | PM.IMPN ---
Progress Note: A&P Assessment and Plan (1) Dizziness: Code(s): R42 - Dizziness and giddiness Status: Acute Assessment and Plan: Resolved, Likely due to low blood pressures -[facility] episode of dizziness. This happened after she was walking back from the bathroom. -No further episodes. CT brain without acute findings. Hypotension on arrival which may have caused her dizziness. Vertigo seems less likely since she has no further episodes. -will monitor for any further dizziness (2) Acute UTI: Code(s): N39.0 - Urinary tract infection, site not specified Status: Acute Assessment and Plan: Urine cx appears to be a contaminant -she has had no fevers or leukocytosis, will stop antibiotics -blood cultures with no growth to date (3) Elevated troponin: Code(s): R77.8 - Other specified abnormalities of plasma proteins Status: Acute Assessment and Plan: With no chest pain and history of elevated troponins and her last stay in November at [facility] -troponins 0.059 -> 0.103 -> 0.111 -EKG shows atrial fibrillation rate [address] changes in inferolateral leads. -patient recently had a viral illness (COVID-19) and now she has significant swelling. The notes from [facility] stated she had trace pitting edema. -echo pending (4) Leg swelling: Code(s): M79.89 - Other specified soft tissue disorders Status: Acute Assessment and Plan: Likely due to pulmonary HTN but also could be due to acute HF (since she recently had COVID-19) -no DVT in either lower extremities -Documentations from last month in [place] shows only trace edema so something has acutely happened -Her treatment plant operator wanted to do a left and right heart cath prior to COVID. -she saw the treatment plant operator 2 and had 2+ edema there but during her hospitalization the week after, the swelling had improved -Bumex held. Lasix 20mg BID given and LE is improving with that. Cr is improving as well (5) LUISANA (acute kidney injury): Code(s): N17.9 - Acute kidney failure, unspecified Status: Acute Assessment and Plan: Cr improved today to 1.7 -Continue lasix, monitor creatinine -u/s shows no etiology -It did show hypoechoic renal lesions that the pt does not want any further work up for. I did tell her if she changes her mind we could do further imaging. (6) CAD (coronary artery disease): Qualifiers: Coronary Disease-Associated Artery/Lesion type: unspecified vessel or lesion type [place] vs. transplanted heart: unspecified whether [place] or transplanted heart Associated angina: without angina Qualified Code(s): I25.10 - Atherosclerotic heart disease of [place] coronary artery without angina pectoris Code(s): I25.10 - Atherosclerotic heart disease of [place] coronary artery without angina pectoris Status: Chronic Assessment and Plan: History significant for coronary disease s/p multiple stents she believes last was in 2007 by [facility]. -She used to follow with Dr Ocampo but most recently has seen Dr Jarrell Hagan at [place] last office visit 11/14/20 available in the computer. Appears he had plans for outpatient right and left heart catheterization outpatient. -await echo (7) Atrial fibrillation: Qualifiers: Atrial fibrillation type: unspecified Qualified Code(s): I48.91 - Unspecified atrial fibrillation Code(s): I48.91 - Unspecified atrial fibrillation Status: Chronic Assessment and Plan: In atrial fibrillation, now in slight RVR -Continue metoprolol (now 12.5mg), may need to increase if she continues to be tachy. -Dig stopped and pt does not want back on it -Looks like home meds show she was also on diltiazem 120mg TID, will ask nurse to verify. May need to be restarted -continue Xarelto (8) Aortic stenosis: Qualifiers:
--- NOTE | 2020-12-12 14:23 | PM.PNCARD ---
Progress Note: A&P Assessment and Plan (1) CHF (congestive heart failure): Qualifiers: Heart failure type: unspecified Heart failure chronicity: acute on chronic Qualified Code(s): I50.9 - Heart failure, unspecified Code(s): I50.9 - Heart failure, unspecified Status: Acute Assessment and Plan: 80-year-old female with extensive cardiac disease including HFpEF, CAD s/p PCI X2, atrial fibrillation (on Xarelto), moderate aortic valve stenosis,CKD, HTN, former tobacco dependence, COPD on home O2, severe pulmonary hypertension, COVID-19 pneumonia (September 2020), who is seen in cardiac consultation for volume overload and elevated troponin She has significant lower ext edema in the setting of diastolic CHF, pulmonary HTN and valvular disease She was resumed on Bumex PO 2 BID however her creatinine was rising. LUISANA is probably Likely in the setting of hypotension on admission. BP better now off Losartan and Cardizem. okay to resume Bumex and follow up closely, she is okay to be discharged home from cardiac standpoint to follow up with her primary glassware maker . (2) NSTEMI (non-ST elevated myocardial infarction): Code(s): I21.4 - Non-ST elevation (NSTEMI) myocardial infarction Status: Acute Assessment and Plan: -troponin I was initially elevated at 0.1 likely Type II DE due to increased demand in setting of acute on chronic renal failure and acute on chronic heart failure with preserved ejection fraction. -Patient denies chest pain, and EKG without evidence of acute injury She declined any intervention. Not candidate anyway at this time due to LUISANA Continue ASA (history of PCI). Also on Xarelto 15 mg for h/o A fib (3) Atrial fibrillation: Qualifiers: Atrial fibrillation type: unspecified Qualified Code(s): I48.91 - Unspecified atrial fibrillation Code(s): I48.91 - Unspecified atrial fibrillation Status: Chronic Assessment and Plan: - Continue Xarelto as per outpatient regimen. Rate well controlled on Metoprolol Stop Cardizem due to low BP. Stop Digoxin due to LUISANA. .. (4) Dizziness: Code(s): R42 - Dizziness and giddiness Status: Acute Assessment and Plan: - Resolved. - She needs close follow-up in the setting of her moderate aortic valve stenosis as per recent outpatient echo (5) Aortic stenosis: Qualifiers: Cardiac valve disease etiology: etiology unspecified Qualified Code(s): I35.0 - Nonrheumatic aortic (valve) stenosis Code(s): I35.0 - Nonrheumatic aortic (valve) stenosis Status: Chronic Assessment and Plan: - patient reports she had an echocardiogram approximately 6 months ago at [facility], with echo results noted in the outpatient note 11/14/2020 by her new glassware maker Dr. Hagan at [facility]: Left ventricular ejection fraction 63%, right ventricular pressure overload pattern to the LV with moderate tricuspid regurgitation, evidence of severe pulmonary hypertension with right ventricular systolic pressure 73 mmHg, mild mitral and aortic regurgitation, moderate aortic valve stenosis with mean gradient of 31 and a valve area of 0.9 centimeter squared. - Dr. Hagan, her primary glassware maker at [facility], had ordered an additional outpatient echo which is pending. Subjective Date/time seen: 12/12/20 14:23 She feels better today, no chest pain no significant shortness of breath, still with some leg swelling Exam Narrative: Exam Narrative: General: sitting up in bed in no acute distress. HEENT: Normocephalic, atraumatic, EOMI, PERRLA, oral mucosa moist. Neck: Supple. Chest: Diminished breath sounds bilaterally, respirations even and nonlabored. Tolerating her home oxygen requirement 2 liters/minute nasal cannula. Heart: Rate is normal, rhythm is irregularly irregular. Abdomen: Soft, nontender, nondistended, bowel sounds present. Skin: La
[2020-12-12] MEDS: RIVAROXABAN 15 MG TABLET PO (17:27)
[2020-12-12] MEDS: MELATONIN 3 MG TABLET PO (20:14)
[2020-12-12] MEDS: MIRTAZAPINE 15 MG TABLET PO (20:14)
[2020-12-13] VITALS (12 sets, daily range): BP systolic 110–128; BP diastolic 60–86; PULSE 78–115; RESP 16–21; TEMP 36–36.6; O2SAT 92–100
[2020-12-13 07:50] LABS: Alanine Aminotransferase 43 U/L (4-35); Alkaline Phosphatase 72 U/L (38-126); Aspartate Amino Transferase 37 U/L (14-36); Bilirubin,Total 1.1 mg/dL (0.2-1.3); Blood Urea Nitrogen 37 mg/dL (7-17); Carbon Dioxide > 40 mmol/L (22-30); Chloride 97 mmol/L (98-107); Estimated CRCL calculation 31 ml/min; Estimated Glomerular Filt Rate 36; Glucose 91 mg/dL (65-105); Magnesium 1.8 mg/dL (1.6-2.3); Potassium 4.3 mmol/L (3.4-5.0); Sodium 138 mmol/L (137-145)
--- NOTE | 2020-12-13 09:11 | PM.PNCARD ---
Progress Note: A&P Assessment and Plan (1) CHF (congestive heart failure): Qualifiers: Heart failure type: unspecified Heart failure chronicity: acute on chronic Qualified Code(s): I50.9 - Heart failure, unspecified Code(s): I50.9 - Heart failure, unspecified Status: Acute Assessment and Plan: 80-year-old female with extensive cardiac disease including HFpEF, CAD s/p PCI X2, atrial fibrillation (on Xarelto), moderate aortic valve stenosis,CKD, HTN, former tobacco dependence, COPD on home O2, severe pulmonary hypertension, COVID-19 pneumonia (September 2020), who is seen in cardiac consultation for volume overload and elevated troponin She has significant lower ext edema in the setting of diastolic CHF, pulmonary HTN and valvular disease She was resumed on Bumex PO 2 BID however her creatinine was rising. LUISANA is probably Likely in the setting of hypotension on admission. BP better now off Losartan and Cardizem. She is now received IV Lasix 20 BID and her leg edema improving and creatinine trending down. Her heart rate is increased after she was taken off Cardizem and Digoxin this admission. Agree with resuming cardizem at lower dose. Will also increase Metoprolol dose to 25 BID If heart rate better later today she should be stable for discharge. Would use lasix 40 mg daily on discharge with BMP in 1 week She need to follow up with her [facility] customer service teller in 1 week . (2) NSTEMI (non-ST elevated myocardial infarction): Code(s): I21.4 - Non-ST elevation (NSTEMI) myocardial infarction Status: Acute Assessment and Plan: -troponin I was initially elevated at 0.1 likely Type II NV due to increased demand in setting of acute on chronic renal failure and acute on chronic heart failure with preserved ejection fraction. -Patient denies chest pain, and EKG without evidence of acute injury She declined any intervention. Not candidate anyway at this time due to LUISANA Continue ASA (history of PCI). Also on Xarelto 15 mg for h/o A fib (3) Atrial fibrillation: Qualifiers: Atrial fibrillation type: unspecified Qualified Code(s): I48.91 - Unspecified atrial fibrillation Code(s): I48.91 - Unspecified atrial fibrillation Status: Chronic Assessment and Plan: - INcrease Metoprolol dose and resume Cardizem at lower dose as above Continue Xarelto as per outpatient regimen. .. (4) Dizziness: Code(s): R42 - Dizziness and giddiness Status: Acute Assessment and Plan: - Resolved. - She needs close follow-up in the setting of her moderate aortic valve stenosis as per recent outpatient echo (5) Aortic stenosis: Qualifiers: Cardiac valve disease etiology: etiology unspecified Qualified Code(s): I35.0 - Nonrheumatic aortic (valve) stenosis Code(s): I35.0 - Nonrheumatic aortic (valve) stenosis Status: Chronic Assessment and Plan: - patient reports she had an echocardiogram approximately 6 months ago at [facility], with echo results noted in the outpatient note 11/14/2020 by her new customer service teller Dr. Hagan at [facility]: Left ventricular ejection fraction 63%, right ventricular pressure overload pattern to the LV with moderate tricuspid regurgitation, evidence of severe pulmonary hypertension with right ventricular systolic pressure 73 mmHg, mild mitral and aortic regurgitation, moderate aortic valve stenosis with mean gradient of 31 and a valve area of 0.9 centimeter squared. - Dr. Hagan, her primary customer service teller at [facility], had ordered an additional outpatient echo which is pending. Subjective Date/time seen: 12/13/20 09:11 Heart rate up this am. She is asymptomatic, denies chest pain, dyspnea or palpiations. Lower ext edema is improving Review of Systems Review of Systems: All systems reviewed & are unremarkable except as noted in HPI and below Exam Narrative:
[2020-12-13] MEDS: ASPIRIN 81 MG ENTERIC TABLET PO (09:22)
[2020-12-13] MEDS: dilTIAZem HCL 60 MG TABLET PO ×3 (09:22→23:31)
[2020-12-13] MEDS: FLUTICASONE PROPIONATE 0.05% NA SPR 16 GM BTL (*BKC) 1 SPRAY NASAL (09:22)
[2020-12-13] MEDS: METOPROLOL TARTRATE 25 MG TABLET PO ×2 (09:22→21:26)
[2020-12-13] MEDS: GABAPENTIN 300 MG CAPSULE 600 MG PO ×3 (09:22→16:45)
[2020-12-13] MEDS: FUROSEMIDE INJ 40 MG/4 ML VIAL 20 MG IV PUSH ×2 (09:23→16:48)
[2020-12-13] MEDS: POTASSIUM CHLORIDE 10 MEQ TABLET.ER PO ×2 (09:24→16:45)
[2020-12-13] MEDS: PRAVASTATIN SODIUM 20 MG TABLET PO (09:25)
--- NOTE | 2020-12-13 11:00 | PM.IMPN ---
Progress Note: A&P Assessment and Plan (1) Dizziness: Code(s): R42 - Dizziness and giddiness Status: Acute Assessment and Plan: Resolved, Likely due to low blood pressures -Patient presented from long term for evaluation after an episode of dizziness. This happened after she was walking back from the bathroom. -No further episodes. CT brain without acute findings. Hypotension on arrival which may have caused her dizziness. Vertigo seems less likely since she has no further episodes. -diuretics and medications adjusted (2) Acute UTI: Code(s): N39.0 - Urinary tract infection, site not specified Status: Acute Assessment and Plan: Urine cx appears to be a contaminant -she has had no fevers or leukocytosis, antibiotic stopped. -blood cultures with no growth to date (3) Elevated troponin: Code(s): R77.8 - Other specified abnormalities of plasma proteins Status: Acute Assessment and Plan: With no chest pain and history of elevated troponins and her last stay in November at [place] -troponins 0.059 -> 0.103 -> 0.111 -EKG shows atrial fibrillation rate [address] changes in inferolateral leads. -patient recently had a viral illness (COVID-19) and now she has significant swelling. The notes from [place] stated she had trace pitting edema. -echo pending -she developed AFib RVR while hospitalized and her medications were adjusted (4) Leg swelling: Code(s): M79.89 - Other specified soft tissue disorders Status: Acute Assessment and Plan: Likely due to pulmonary HTN but also could be due to acute HF (since she recently had COVID-19) -no DVT in either lower extremities -Documentations from last month in [place] shows only trace edema so something has acutely happened -Her art installer wanted to do a left and right heart cath prior to COVID. -she saw the art installer 2 and had 2+ edema there but during her hospitalization the week after, the swelling had improved -Bumex held. Lasix 20mg BID given and LE is improving with that. Cr is improving as well (5) LUISANA (acute kidney injury): Code(s): N17.9 - Acute kidney failure, unspecified Status: Acute Assessment and Plan: Cr improved today to 1.4 -Continue lasix, monitor creatinine -u/s shows no etiology -It did show hypoechoic renal lesions that the pt does not want any further work up for. I did tell her if she changes her mind we could do further imaging. (6) CAD (coronary artery disease): Qualifiers: Coronary Disease-Associated Artery/Lesion type: unspecified vessel or lesion type [place] vs. transplanted heart: unspecified whether [place] or transplanted heart Associated angina: without angina Qualified Code(s): I25.10 - Atherosclerotic heart disease of [place] coronary artery without angina pectoris Code(s): I25.10 - Atherosclerotic heart disease of [place] coronary artery without angina pectoris Status: Chronic Assessment and Plan: History significant for coronary disease s/p multiple stents she believes last was in 2007 by [facility]. -She used to follow with Dr Ocampo but most recently has seen Dr Jarrell Hagan at [place] last office visit 11/14/20 available in the computer. Appears he had plans for outpatient right and left heart catheterization outpatient. -await echo (7) Atrial fibrillation: Qualifiers: Atrial fibrillation type: unspecified Qualified Code(s): I48.91 - Unspecified atrial fibrillation Code(s): I48.91 - Unspecified atrial fibrillation Status: Chronic Assessment and Plan: In atrial fibrillation, now in slight RVR -Continue metoprolol now 25mg -home diltiazem added but at a lower dose -Dig stopped and pt does not want back on it -continue Xarelto (8) Aortic stenosis: Qualifiers: Cardiac valve disease etiology: etiology unspecified Qual
--- NOTE | 2020-12-13 11:29 | PM.PNNEP ---
Progress Note: A&P Assessment and Plan (1) LUISANA (acute kidney injury): Code(s): N17.9 - Acute kidney failure, unspecified Status: Acute Assessment and Plan: The patient has acute kidney disease. This is most likely prerenal in nature as it is happened during add active diuresis Renal ultrasound shows left-sided kidney stone and bilateral hypoechogenic regions looking like cysts. No hydro. Urine electrolytes are non pre renal but the patient was on diuretics Urine eosinophils pending UA is bland CPK is normal The creatinine is improved. it has fallen from 2.3 at its peak to today's value of 1.4. I agree with Dr. Tovar with continued diuresis as an outpatient. She can be followed by her developing machine tender and can come for kidney evaluation as an outpatient if needed. (2) CKD stage G3a/A1, GFR 45-59 and albumin creatinine ratio <30 mg/g: Code(s): N18.31 - Chronic kidney disease, stage 3a Status: Acute Assessment and Plan: She has chronic kidney disease. Most likely this is due to hypertension and chronic pre renal azotemia The creatinine is back to its baseline. (3) Leg swelling: Code(s): M79.89 - Other specified soft tissue disorders Status: Acute Assessment and Plan: The patient has swelling. Most likely this is due to the pulmonary hypertension. I agree with tiffany Montejo at discharge (4) Pulmonary hypertension: Code(s): I27.20 - Pulmonary hypertension, unspecified Status: Acute Assessment and Plan: The patient has pulmonary hypertension due to COPD. He also has aortic stenosis on the problem list in the chart and so this might contribute as well. (5) HLD (hyperlipidemia): Qualifiers: Hyperlipidemia type: unspecified Qualified Code(s): E78.5 - Hyperlipidemia, unspecified Code(s): E78.5 - Hyperlipidemia, unspecified Status: Acute Assessment and Plan: The patient is on pravastatin Subjective Date/time seen: 12/13/20 11:29 Interval history: The patient feels okay today. Her swelling is Doing pretty well. Exam Narrative: Exam Narrative: WDWN in NAD skin no rash Or subcu nodules head ncat lungs clear but decreased breath sounds at the bases cor reg no rub or gallop abd BS+ nontender and soft ext 1 to2+ bilateral lower extremity edema. Objective Data Vital Signs Vital Signs: Vital Signs - 24 hr 12/12/20 12:00 12/12/20 14:00 12/12/20 16:00 Temperature 36.6 C Pulse Rate 100 101 H 107 H Respiratory Rate 20 Blood Pressure 96/64 L Pulse Oximetry 97 12/12/20 18:00 12/12/20 20:00 12/12/20 20:14 Temperature 36.7 C Pulse Rate 103 H 111 H 111 H Respiratory Rate 16 16 Blood Pressure 132/84 Pulse Oximetry 98 98 12/12/20 22:00 12/13/20 00:03 12/13/20 02:56 Temperature 36.2 C L Pulse Rate 88 107 H Respiratory Rate 21 H Blood Pressure 136/92 H Pulse Oximetry 100 95 12/13/20 04:00 12/13/20 06:00 12/13/20 08:00 Temperature 36.6 C 36.1 C L Pulse Rate 102 H 110 H 100 Respiratory Rate 21 H 16 Blood Pressure 128/86 127/62 Pulse Oximetry 100 100 12/13/20 09:22 12/13/20 09:33 Temperature Pulse Rate 110 H 113 H Respiratory Rate 18 Blood Pressure Pulse Oximetry 94 Intake/Output Intake/Output: Intake & Output 12/10/20 12/11/20 12/12/20 12/13/20 23:59 23:59 23:59 23:59 Intake Total 1330 1495 1760 990 Output Total 600 950 600 600 Balance 004 938 8934 390 Meds/Results Medications: Active Medications Generic Name Dose Route Start Last Admin Trade Name Freq PRN Reason Stop Dose Admin Acetaminophen 650 mg 12/09/20 07:56 Acetaminophen 325 Mg Tablet PO Q4H PRN Pain or Fever Albuterol 2.5 mg 12/09/20 07:50 Albuterol Sulfate Neb 2.5 Mg/3 Ml Inh INHALATION Q6HRT PRN shortness of breath or wheezing Aspirin 81 mg 12/10/20 05:00 12/13/20 09:22 Aspirin 81 Mg Enteric Tablet PO [address] [facility]
[2020-12-13 13:21] LABS: SARS-CoV-2 RNA PCR Negative
[2020-12-13] MEDS: SILVERGEL (ELTA) 45 ML 1 APPLIC TOPICAL (14:39)
[2020-12-13] MEDS: RIVAROXABAN 15 MG TABLET PO (16:47)
[2020-12-13] MEDS: MELATONIN 3 MG TABLET PO (21:26)
[2020-12-13] MEDS: MIRTAZAPINE 15 MG TABLET PO (21:27)
[2020-12-14] VITALS: BP 112/84; PULSE 110; PULSE 92; RESP 18; TEMP 36.2; O2SAT 93
[2020-12-14 04:00] VITALS: BP 126/79; PULSE 83; PULSE 88; RESP 18; TEMP 36.1; O2SAT 99
[2020-12-14] MEDS: dilTIAZem HCL 60 MG TABLET PO (05:12)
[2020-12-14 06:08] LABS: Albumin Level 3.2 g/dL (3.5-5.1); Anion Gap 2 mmol/L (8-16); Blood Urea Nitrogen 35 mg/dL (7-17); Calcium 9.3 mg/dL (8.4-10.2); Carbon Dioxide 38 mmol/L (22-30); Chloride 97 mmol/L (98-107); Estimated CRCL calculation 33 ml/min; Estimated Glomerular Filt Rate 39; Glucose 105 mg/dL (65-105); Phosphorus 3.3 mg/dL (2.5-4.5); Potassium 4.6 mmol/L (3.4-5.0); Sodium 137 mmol/L (137-145)
--- NOTE | 2020-12-14 07:00 | PM.DS ---
DS: Admitting Diagnosis Admitting Diagnosis Admitting Diagnosis: dizziness, dehydration DS: Discharge Diagnosis Discharge Diagnosis (1) Discharge planning issues: Code(s): Z02.9 - Encounter for administrative examinations, unspecified Status: Acute Assessment and Plan: Pt was unable to discharge 12/13/20 due to delayed ambulance service. She was seen 12/13/20 before discharge and states she is doing well with no new complaints. (2) Dizziness: Code(s): R42 - Dizziness and giddiness Status: Acute Assessment and Plan: Resolved, Likely due to low blood pressures -Patient presented from assisted for evaluation after an episode of dizziness. This happened after she was walking back from the bathroom. -No further episodes. CT brain without acute findings. Hypotension on arrival which may have caused her dizziness. Vertigo seems less likely since she has no further episodes. -diuretics and medications adjusted as stated below (3) Acute UTI: Code(s): N39.0 - Urinary tract infection, site not specified Status: Acute Assessment and Plan: Urine cx appears to be a contaminant -she has had no fevers or leukocytosis, antibiotic stopped. -blood cultures with no growth to date (4) Elevated troponin: Code(s): R77.8 - Other specified abnormalities of plasma proteins Status: Acute Assessment and Plan: With no chest pain and history of elevated troponins and her last stay in November at [place] -troponins 0.059 -> 0.103 -> 0.111 -EKG shows atrial fibrillation rate [address] changes in inferolateral leads. -patient recently had a viral illness (COVID-19) and now she has significant swelling. The notes from [place] stated she had trace pitting edema. -echo pending -she developed AFib RVR while hospitalized and her medications were adjusted. Her HR was 88 at discharge. (5) Leg swelling: Code(s): M79.89 - Other specified soft tissue disorders Status: Acute Assessment and Plan: Likely due to pulmonary HTN but also could be due to acute HF (since she recently had COVID-19) -no DVT in either lower extremities -Documentations from last month in [place] shows only trace edema so something has acutely happened -Her parts salesperson wanted to do a left and right heart cath prior to COVID. -she saw the parts salesperson 11/14/20 and had 2+ edema there but during her hospitalization the week after, the swelling had improved -Bumex held. Lasix 20mg BID given and LE is improving with that. Cr is improving as well -Lasix will be given outpt and bumex stopped. She is to f/u with her parts salesperson in 1-2 weeks. Lab draw in one week to assess electrolytes and kidney function. (6) LUISANA (acute kidney injury): Code(s): N17.9 - Acute kidney failure, unspecified Status: Acute Assessment and Plan: Cr improved today to 1.3 -u/s shows no etiology -It did show hypoechoic renal lesions that the pt does not want any further work up for. I did tell her if she changes her mind we could do further imaging. (7) CAD (coronary artery disease): Qualifiers: Coronary Disease-Associated Artery/Lesion type: unspecified vessel or lesion type [place] vs. transplanted heart: unspecified whether [place] or transplanted heart Associated angina: without angina Qualified Code(s): I25.10 - Atherosclerotic heart disease of [place] coronary artery without angina pectoris Code(s): I25.10 - Atherosclerotic heart disease of [place] coronary artery without angina pectoris Status: Chronic Assessment and Plan: History significant for coronary disease s/p multiple stents she believes last was in 2007 by [facility]. -She used to follow with Dr Ocampo but most recently has seen Dr Jarrell Hagan at [place] last office visit 11/14/20 available in the computer. Appears he had plans for outpatient right and left heart catheterizati
--- NOTE | 2020-12-20 08:26 | PC.NURSE ---
Blood cx are negative.
== END 2020-12-14 07:00 | DRG 291 ==
LOC: ANHED 22:22 → ANHIMU 12-09 02:42 → ANH2MED 12-10 03:02
PROVIDERS: Internal Medicine; Internal Medicine Nephrology; Physician Assistant; Admitting Provider Family Medicine; Emergency Provider Emergency Medicine; PCP Family Medicine; Visit Provider Internal Medicine
DX: I13.0 Hypertensive heart and chronic kidney disease with heart failure and stage 1 through stage 4 chronic kidney disease, or unspecified chronic kidney disease (principal); I50.33 Acute on chronic diastolic (congestive) heart failure; N17.9 Acute kidney failure, unspecified; J96.11 Chronic respiratory failure with hypoxia; I48.20 Chronic atrial fibrillation, unspecified; N18.32 Chronic kidney disease, stage 3b; R55 Syncope and collapse; Z20.822 Contact with and (suspected) exposure to COVID-19; I25.10 Atherosclerotic heart disease of native coronary artery without angina pectoris; I35.0 Nonrheumatic aortic (valve) stenosis; G60.9 Hereditary and idiopathic neuropathy, unspecified; E78.5 Hyperlipidemia, unspecified; I27.20 Pulmonary hypertension, unspecified; J43.9 Emphysema, unspecified; Z96.651 Presence of right artificial knee joint; Z99.81 Dependence on supplemental oxygen; Z86.16 Personal history of COVID-19; I25.2 Old myocardial infarction; Z85.3 Personal history of malignant neoplasm of breast; Z90.711 Acquired absence of uterus with remaining cervical stump; Z95.5 Presence of coronary angioplasty implant and graft; Z87.891 Personal history of nicotine dependence; Z79.01 Long term (current) use of anticoagulants
CPT/HCPCS: 36415; 51701; 70450; 71045; 76775; 80048; 80053; 80069; 80076; 80162; 81001; 82550; 82570; 82948; 83605; 83735; 83880; 84100; 84156; 84300; 84484; 85025; 85027; 85610; 85730; 85999; 86140; 87040; 87086; 87088; 93005; 93306; 93880; 93970; 96361; 96365; 96375; 97110; 97116; 97161; 97165; 97530; 97535; 99285; A9270; C9803; G0378; J0696; J1940; J3475; J7030; U0003; U0005